=== PATIENT | female | born 1955 | race Caucasian/White ===

== ENCOUNTER 2021-01-16 07:41 | Outpatient (CLI) | payer OTHER, SELFPAY ==
--- NOTE | ~2021-01-16 | MM_ITS ---
EXAMINATION: MM screening [facility] BI w margie HISTORY: Screening mammogram TECHNIQUE: Craniocaudal and mediolateral oblique 3-D tomosynthesis images were obtained and synthetic 2-D images were generated. CAD analysis was submitted and interpreted. COMPARISON: 12/21/2019, 10/06/2018, 09/09/2017 BREAST PARENCHYMAL COMPOSITION: There are scattered areas of fibroglandular density. FINDINGS: There is no evidence of suspicious mass, calcification, or architectural distortion to sugg est malignancy in either breast. There has been no suspicious interval change. IMPRESSION: 1. No mammographic evidence of malignancy. 2. Recommend routine screening mammography in one year. BI-RADS Category 1: Negative Reviewed, dictated and finalized at location A. EDGE ROUNDER
== END 2021-01-16 07:42 | disposition home or self-care (01) ==
LOC: ANHIMG 07:43
PROVIDERS: PCP Internal Medicine; Visit Provider Obstetrics & Gynecology Gynecology
DX: Z12.31 Encounter for screening mammogram for malignant neoplasm of breast (principal)
CPT/HCPCS: 77063; 77067

== ENCOUNTER → 2022-04-23 11:08 | Outpatient (CLI) | payer MEDICARE, SELFPAY ==
--- NOTE | ~2022-04-23 | MR_ITS ---
EXAMINATION: MR lumbar spine wo con DATE: 04/23/2022 11:45 INDICATION: Chronic low back pain. TECHNIQUE: Magnetic resonance imaging (MRI) of the lumbar spine was performed without intravenous con trast. Sequences included sagittal T2-weighted FSE, sagittal T2-weighted FS FSE, sagittal T1-weighted FSE, and axial T2-weighted FSE. COMPARISON: Lumbar spine radiographs 05/29/2019, chest 2 views 09/12/2018 FINDINGS: There is 4 degrees dextrocurvature of thoracolumbar spine. There is 5 mm retrolisthesis of T12 on L1, 7 mm retrolisthesis of L1 on L2, 3 mm retrolisthesis of L2 on L3, 5 mm anterolisthesis of L4 on L5, and 10 mm anterolisthesis of L5 on S1. There are chronic bilateral L5 pars defects. There i s severely decreased disc height at T11-T12, T12-L1, L1-L2, and L5-S1 with endplate remodeling includ ing chronic 1/5 height loss of L5 vertebral body posteriorly. There is ligamentum flavum hypertrophy from L2-L3 through L4-L5. The distal spinal cord signal intensity is no L4-L5. There is Baastrup dis ease from L2-L3 through L4-L5. The following disc levels are specifically discussed: T12-L1: The disc is bulging and has an annular fissure. There is mild bilateral facet joint osteoarth ritis. There is mild right and moderate left neural foraminal stenosis. There is mild central canal s tenosis. L1-L2: The disc is bulging and has an annular fissure. There is mild bilateral facet joint osteoarthr itis. There is moderate bilateral neural foraminal stenosis. There is mild central canal stenosis. L2-L3: The disc is bulging and has an annular fissure. There is moderate right and mild left facet briseida int osteoarthritis. There is moderate bilateral neural foraminal stenosis. There is mild central kelsi l stenosis. L3-L4: The disc is bulging. There is severe right and moderate left facet joint osteoarthritis. There is moderate bilateral neural foraminal stenosis. There is mild central canal stenosis. L4-L5: The disc is bulging. There is severe bilateral facet joint osteoarthritis. There is moderate r ight and mild left neural foraminal stenosis. There is mild central canal stenosis. L5-S1: The disc is bulging and has an annular fissure. There is severe bilateral facet joint osteoart hritis. There is moderate bilateral neural foraminal stenosis. There is mild central canal stenosis. IMPRESSION: 1. Severe lumbar spondylosis. 2. Chronic bilateral L5 pars defects with grade 2 anterolisthesis of L5 on S1. Reviewed, dictated and finalized at location A.
== END ==
PROVIDERS: PCP Internal Medicine; Visit Provider Pain Medicine Pain Medicine
DX: M54.16 Radiculopathy, lumbar region (principal); M43.06 Spondylolysis, lumbar region
CPT/HCPCS: 72148

== ENCOUNTER 2022-06-18 08:44 | Outpatient (CLI) | payer MEDICARE, SELFPAY ==
--- NOTE | ~2022-06-18 | MM_ITS ---
EXAMINATION: MM screening [facility] BI w margie HISTORY: Screening mammogram TECHNIQUE: Craniocaudal and mediolateral oblique 3-D tomosynthesis images were obtained and synthetic 2-D images were generated. CAD analysis was submitted and interpreted. COMPARISON: January 16, 2021, December 21, 2019, October 06, 2008 bilateral screening mammogram exam inations Medial shoulder BREAST PARENCHYMAL COMPOSITION: There are scattered areas of fibroglandular density. FINDINGS: There is no evidence of suspicious mass, calcification, or architectural distortion to sugg est malignancy in either breast. There has been no suspicious interval change. IMPRESSION: 1. No mammographic evidence of malignancy. 2. Recommend routine screening mammography in one year. BI-RADS Category 1: Negative Reviewed, dictated and finalized at location A.
--- NOTE | ~2022-06-18 | DEXA_ITS ---
Bone Density Report Name: DIMITRIOS MO Age: 66 Sex: Female Ethnicity: White Date of : 1955 Indication: postmenopausal; screening for osteoporosis; height loss; prior fracture; asthma or emphysema; Referring Provider: MIRIAM FALLON Study: Bone densitometry was performed. Exam Date: June 18, 2022 Accession number: [id number] Bone Density: Region BMD T-score Z-score Classification AP Spine(L1, L2, L3) 0.981 -0.3 1.4 Normal Femoral Neck (Left) 0.822 -0.2 1.3 Normal Total Hip (Left) 0.739 -1.7 -0.4 Osteopenia Femoral Neck (Right) 1.000 1.4 2.9 Normal Total Hip (Right) 0.761 -1.5 -0.2 Osteopenia Total Hip Mean 0.750 -1.6 -0.3 Osteopenia World Health Organization criteria for BMD impression classify patients as: Normal (T-score at or above -1.0), Osteopenia (T-score between -1.0 and -2.5), or Osteoporosis (T-score at or below -2.5). 10-year Fracture Risk: FRAX not reported because: Prior hip or vertebral fracture Previous Exams: Region Exam Age BMD T-score BMD Change BMD Change Date g/cm2 vs Baseline vs Previous AP Spine (L1-L3) 06/18/2022 66 0.981 -0.3 0.010 (1.0%)# 0.056 (6.0%)* 10/06/2018 63 0.926 -0.8 -0.045 (-4.7%) -0.040 (-4.2%) 06/23/2016 60 0.966 -0.5 -0.005 (-0.6%) -0.005 (-0.6%) 03/05/2014 58 0.971 -0.4 Total Hip(Left) 06/18/2022 66 0.739 -1.7 -0.047 (-5.9%) -0.088 (-10.6% 10/06/2018 63 0.827 -0.9 0.041 (5.2%)# 0.060 (7.8%)* 06/23/2016 60 0.768 -1.4 -0.018 (-2.3%) -0.018 (-2.3%) 03/05/2014 58 0.786 -1.3 Total Hip(Right) 06/18/2022 66 0.761 -1.5 -0.011 (-1.4%) -0.063 (-7.6%) 10/06/2018 63 0.824 -1.0 0.052 (6.7%)# 0.048 (6.2%)* 06/23/2016 60 0.776 -1.4 0.004 (0.5%)# 0.004 (0.5%)# 03/05/2014 58 0.772 -1.4 *Denotes significance at 95% confidence level, LSC for AP Spine = 0.022 g/cm2, LSC for Total Hip = 0.027 g/cm2 # Denotes dissimilar scan types or analysis methods Clinical Information Provided by Patient: Have had a previous hip or vertebral fracture Has had a low trauma fracture Has used the following medications: Vitamin D Has the following medical conditions: Asthma or Emphysema Patient maximum height was 70.5 Menopause Age: 51 Drinks caffeinated beverages Onset of menses at age 16 Number of children 3 Impression: The patient has low bone mass, based on the Left Total Hip T-score. The patient has risk factors, including: previous fracture
== END 2022-06-18 08:45 | disposition home or self-care (01) ==
LOC: ANHIMG 08:46
PROVIDERS: PCP Internal Medicine; Visit Provider Obstetrics & Gynecology Gynecology
DX: Z12.31 Encounter for screening mammogram for malignant neoplasm of breast (principal); Z78.0 Asymptomatic menopausal state; M85.852 Other specified disorders of bone density and structure, left thigh; M85.851 Other specified disorders of bone density and structure, right thigh
CPT/HCPCS: 77063; 77067; 77080

== ENCOUNTER 2023-11-14 10:25 | Outpatient (CLI) | payer MEDICARE, SELFPAY ==
--- NOTE | ~2023-11-14 | MM_ITS ---
EXAMINATION: MM screening [facility] BI w margie HISTORY: Screening mammogram TECHNIQUE: Craniocaudal and mediolateral oblique 3-D tomosynthesis images were obtained and synthetic 2-D images were generated. CAD analysis was submitted and interpreted. COMPARISON: 06/18/2022, 01/16/2021, 12/21/2019 bilateral screening mammogram examinations BREAST PARENCHYMAL COMPOSITION: There are scattered areas of fibroglandular density. FINDINGS: There is no evidence of suspicious mass, calcification, or architectural distortion to sugg est malignancy in either breast. There has been no suspicious interval change. IMPRESSION: 1. No mammographic evidence of malignancy. 2. Recommend routine screening mammography in one year. BI-RADS Category 1: Negative Reviewed, dictated and finalized at location A. MACHINE OPERATOR
== END 2023-11-14 10:26 | disposition home or self-care (01) ==
PROVIDERS: PCP Internal Medicine; Visit Provider Obstetrics & Gynecology Gynecology
DX: Z12.31 Encounter for screening mammogram for malignant neoplasm of breast (principal)
CPT/HCPCS: 77063; 77067

== ENCOUNTER 2024-12-18 15:02 | Outpatient (CLI) | payer MEDICARE, SELFPAY ==
--- NOTE | ~2024-12-18 | MM_ITS ---
EXAMINATION: MM screening [facility] BI w margie HISTORY: Screening TECHNIQUE: Craniocaudal and mediolateral oblique 3-D tomosynthesis images were obtained and synthetic 2-D images were generated. CAD analysis was submitted and interpreted. COMPARISON: Comparison to multiple prior studies sequentially, with oldest reviewed study dated 08/27. BREAST PARENCHYMAL COMPOSITION: Not dense: There are scattered areas of fibroglandular density. FINDINGS: There is no evidence of suspicious mass, calcification, or architectural distortion to sugg est malignancy in either breast. There has been no suspicious interval change. IMPRESSION: 1. No mammographic evidence of malignancy. 2. Recommend routine screening mammography in one year. BI-RADS Category 1: Negative Reviewed, dictated and finalized at location A. NDER OPERATOR HELPER
== END 2024-12-18 15:03 | disposition home or self-care (01) ==
LOC: ANHIMG 15:04
PROVIDERS: PCP Internal Medicine; Visit Provider Obstetrics & Gynecology Gynecology
DX: Z12.31 Encounter for screening mammogram for malignant neoplasm of breast (principal)
CPT/HCPCS: 77063; 77067

== ENCOUNTER 2025-11-19 20:57 | Emergency (ER) | payer MEDICARE, SELFPAY ==
--- OUTSIDE RECORDS SUMMARY | 2025-11-19 21:00 | XMS_ITS | Clinical Summary ---
Author Organization [facility] Address [address] [place] [address] Care Team Providers Care Bellman Name Role Phone Chris Wright MD Primary Care Provider [phone] Source Comments [facility],non-owned Affiliates and Associated Physician Practices is amultiple site organization consisting of ambulatory clinics and hospital sitesin [place], [place], [place] and [place]. This disclosure is being madepursuant to the Care Everywhere program and may not contain all information available regarding this patient. Last updated 18.[facility] Allergies No known active allergies Medications * Be aware that medications may not be up to date on this document. Alwaysverify current medications with the patient. vitamin D, ergocalciferol, (DRISDOL) 57908 UNITS capsule Take 1 (one) capsule by mouth every 7 days 3 09/10/2016 Active ADVAIR DISKUS 500-50 MCG/DOSE inhaler Inhale 1 (one) puff by mouth 2 times daily 02/26/2019 Active Ascorbic Acid 500 MG Take 500 mg by mouth once daily Active B Complex Vitamins (B COMPLEX PO) Take 1 tablet by mouth once daily Active budesonide (Rhinocort Aqua) 32 MCG/ACT nasal spray Ryder 2 (two) sprays into each nostril once daily 8.43 mL 5 07/25/2022 Active ibandronate (Boniva) 150 MG tablet Take 1 (one) tablet by mouth every 30 days 10/23/2023 Active montelukast (Singulair) 10 MG tablet Take 1 (one) tablet by mouth once daily 11/24/2023 Active albuterol HFA (Proventil; Ventolin; Proair) 108 (90 Base) MCG/ACT inhaler Inhale 2 (two) puffs by mouth every 6 hours as needed 01/14/2025 Active benzonatate (Tessalon) 200 MG capsule Take 1 (one) capsule by mouth 3 times daily 01/14/2025 Active Active Problems Problem Noted Date Diagnosed Date Degenerative cervical spinal stenosis 03/31/2022 Degenerative spondylolisthesis 03/31/2022 Spondylolysis of lumbosacral region 03/31/2022 Mild intermittent asthma without complication Primary osteoarthritis of both knees 10/23/2018 Pulsatile abdominal mass 10/23/2018 Vitamin D deficiency 10/23/2018 Obstructive sleep apnea 07/11/2017 Nasal polyp 05/11/2016 Chronic ethmoidal sinusitis 09/30/2015 Chronic maxillary sinusitis 09/30/2015 Resolved Problems Problem Noted Date Diagnosed Date Resolved Date Bilateral sacral insufficien cy fracture with routine healing 06/26/2019 12/25/2024 Immunizations Immunization Administration Dates Next Due INFLUENZA VACCINE, TRIV. (AF LURIA, FLUZONE TRIVALENT; 6MO+) (IIV3) 07/28/2020,09/04/2019,09/22/2018 COVID MODERNA 12+ yr 50mcg/0.5mL 08/12/2024,1105/2023 COVID MODERNA BIVALENT 12Y+ 50MCG/0.5ML 04/29/20 COVID PFIZER BIVALENT 12Y+ 30mcg/0.3ML Covid Pfizer primary Monoval ent 12+ yr 0.3ml 03/21/2022 Covid Pfizer primary monoval ent 12+ yr 0.3mL Purple cap 09/08/2021,02/16/2021,01/26/2021 INFLUENZA [id number], HISTORIC VACCINE 09/11/2023 INFLUENZA VACCINE 08/23/2023 INFLUENZA VACCINE, CELL CULT URE, QUADR. (FLUCELVAX QUADRIVALENT; 6MO+) (CCIIV4) 09/04/2019,09/21/2018 INFLUENZA VACCINE, HIGH-DOSE , QUADR. (FLUZONE HIGH-DOSE QUADRIVALENT; 65Y+), 0.7 ML (HD-IIV4) 10/03/2023,08/17/2022,09/08/2021 INFLUENZA VACCINE, HIGH-DOSE , TRIV. (FLUZONE HIGH-DOSE TRIVALENT; 65Y+) (HD-IIV3) 08/12/2024 PNEUMOCOCCAL PPSV23 04/01/2021 Pneumococcal Pcv13 Conj 05/11/2020 RSV AREXVY 60YR+ 0.5ML 11/29/2023 ZOSTER VACCINE, LIVE 11/27/2016,09/18/2016 Zoster Hzv Vacc Recombinant Inj Im 04/29/2023, Family History Medical History Relation Name Comments Arthritis - Rheumatoid Brother 1 Osteoporosis Brother 2 Arthritis - Rheumatoid Father Hearing Loss Father Heart Disease Father High Cholesterol Father Hypertension Father Arthritis - Rheumatoid Maternal Grandmother Anemia Mother Arthritis - Rheumatoid Mother Dementia Mother Hearing Loss Mother Heart Disease Mother Hypertension Mother Osteoporosis Mother Arthritis - Rheumatoid Paternal Grandmother Arthritis - Rheumatoid Sister 1 Osteoporosis Sister 2 Thyroid Disease Sister 3 Relation Name Status Comments Brother 1 Brother 2 Father Maternal Grandmother Mother Paternal Grandmother Sister 1 Sister 2 Sister 3 Social History Tobacco Use Types Packs/Day Years Used Date Smoking Tobacco: Never Smokeless Tobacco: Never Tobacco Cessation:Counseling Given: Not Answered Alcohol Use Standard Drinks/Week Comments Yes 3 (1 standard drink = 0.6 oz pur e alcohol) Comments Unknown Sex and Gender Information Value Date Recorded Sex Assigned at Not on file Legal Sex Female 5:23 PM SECTION HAND HELPER Gender Identity Not on file Sexual Orientation Not on file Last Filed Vital Signs Vital Sign Reading Time Taken Comments Blood Pressure 145/80 01/28/2025 9:24 AM SECTION HAND HELPER Pulse 79 01/28/2025 9:24 AM SECTION HAND HELPER Temperature 36.7 C (98.1 F) 06/08/2021 2:51 PM CDT Respiratory Rate 14 08/23/2016 9:30 AM CDT Oxygen Saturation - - Inhaled Oxygen Concentration - - Weight 66.9 kg (147 lb 8 oz) 01/28/2025 9:24 AM SECTION HAND HELPER Height 175.3 cm (5' 9) 01/28/2025 9:24 AM SECTION HAND HELPER Body Mass Index 21.78 01/28/2025 9:24 AM SECTION HAND HELPER Plan of Treatment Health Maintenance Due Date Last Done Comments COLOGUACHERYL (AGES 45-75) - COLON CA SCREENING 1955 COLON MONITORING 1955 COLONOSCOPY - COLON CA SCREENING 1955 CT COLONOGRAPHY - COLON CA SCREENING 1955 Colorectal Cancer Screening 1955 FIT - COLON CA SCREENING 1955 FLEX SIG - COLON CA SCREENING 1955 LIPID TESTING 1955 HEPATITIS C SCREENING 08/22/1974 DTAP/TDAP/TD VACCINES (1 - Tdap) 1975 DEPRESSION SCREENING 11/27/2024 MEDICARE AWV CALENDAR YEAR 2024 COVID-19 VACCINE (2024- season) 2025 08/12/2024, 10/03/2023, 04/29/2023, Additional history exists INFLUENZA VACCINE (#1) 2025 , 10/03/2023, 09/11/2023, Additional history exists MAMMOGRAM 11/14/2025 11/14/2023 PNEUMOCOCCAL VACCINE 50+ (3 of 3 - PCV20 or PCV21) 04/01/2026 04/01/2021, 05/11/2020 BONE DENSITY TESTING Completed 11/18/2019, 07/01/20 19 ZOSTER VACCINE Completed 04/29/2023, 1211/2021, 11/27/2016, Additional history exists Respiratory Syncytial Virus (RSV) Vaccine Pt: or over 60 yrs Completed 11/29/2023 HEPATITIS B VACCINE Aged Out No longe r eligible based on patient's age to complete this topic HIB VACCINE Aged Out No longer eligi ble based on patient's age to complete this topic HPV VACCINE Aged Out No longer eligi ble based on patient's age to complete this topic MENINGOCOCCAL (Group B) VACCINE SHARED DECISION-MAKING Aged Out No longer eligible based on patient's age to complete this topic MENINGOCOCCAL GROUPS A/C/Y/W VACCINE Aged Out No longer eligible based on patient's age to complete this topic Insurance [facility] MEDICARE UHC MANAGED MEDICARE ADV [facility] Care Teams Bellman Relationship Specialty Start Date End Date Chris Wright MD PCP - General 04/09/19
--- OUTSIDE RECORDS SUMMARY | 2025-11-19 21:00 | XMS_ITS | Clinical Summary ---
Author Organization [facility] Address [address] [place] [address] Care Team Providers Care Occupational Therapy Teacher Name Role Phone Chris Wright MD Primary Care Provider [phone] Allergies No known active allergies Medications ascorbic acid (VITAMIN C) 500 mg Tablet, Chewable Take 500 mg by mouth daily. Active B-complex + vitamin C (SUPER B-C) Tablet Take 1 Tablet by mouth daily. Active ibandronate (BONIVA) 150 mg tablet Take 1 Tablet (150 mg) by mouth every 30 days. 3 Tablet 3 10/23/20 23 Active Cholecalciferol, Vitamin D3, (Vitamin D3) 10 mcg (400 unit) capsule Take 400 Units by mouth daily. 11/27/19 24 Active benzonatate (TESSALON) 200 mg capsuleIndicatio ns:Mild intermittent asthma with acute exacerbation Take 1 Capsule (200 mg) by mouth 3 times daily. 30 Capsule 01/14/20 25 Active albuterol sulfate HFA 90 mcg/actuation aerosol inhalerIndicatio ns:Mild intermittent asthma with acute exacerbation Take 2 Puffs by inhalation every 6 hours as needed for Shortness of Breath or Wheezing. 8.5 Gram 01/14/20 25 Active fluticasone propion-salmeter oL (ADVAIR DISKUS,WIXELA INHUB) 500-50 mcg/dose disk inhaler Take 1 Puff by inhalation 2 times daily. 60 Each 3 07/08/20 25 Active montelukast (SINGULAIR) 10 mg tabletIndication s:Mild intermittent asthma without complication TAKE 1 TABLET BY MOUTH DAILY 90 Tablet 3 10/09/20 Active methylPREDNISolo ne (MEDROL DOSPACK) 4 mg Tablets, Dose Pack As directed 21 Tablet 03/10/20 25 025 Discontinued Active Problems Patient Care Coordination No te Formatting of this note migh t be different from the original. [id number] 02/24/25 Problem Noted Date Diagnosed Date Other asthma 08/16/2024 Spondylolysis of lumbosacral region 03/31/2022 Degenerative spondylolisthesis 03/31/2022 Lumbar stenosis without neurogenic claudication 03/31/2022 Degenerative cervical spinal stenosis 03/31/2022 Bilateral sacral insufficien cy fracture with routine healing 06/26/2019 Mild intermittent asthma without complication Vitamin D deficiency 10/23/2018 Primary osteoarthritis of both knees 10/23/2018 Pulsatile abdominal mass 10/23/2018 Encounters Date Type Department Care Team Description 11/18/2025 External Device Data [facility]CTION Provider, Abstract 11/17/2025 10:20 AM [employer] Office Visit [facility] [address] [place] [address] Chris Wright MD Screening mammogram, encounter for (Primary Dx); Vitamin B12 deficiency (non anemic); Vitamin D deficiency; Other asthma; Elevated BP without diagnosis of hypertension; Myalgia 10/14/2025 External Device Data [facility] Provider, Abstract 10/08/[address] [place] [address] Chris Wright MD Mild intermittent asthma without complication 09/17/2025 External Device Data [facility]STRACTION Provider, Abstract from Last 3 Months Immunizations Immunization Administration Dates Next Due (ADACEL/BOOSTRIX)(10 YR UP) TDAP VACCINE, 0.5ML, IM 11/29/2023 (AREXVY)(60 YR UP) RSV, JUAN MBINANT, PROTEIN SUBUNIT RSVPREF, ADJUVANT RECONSTITUTED, 0.5 ML, PF 11/29/2023 (PFIZER)(12 YR UP) COVID-19 VACCINE - EMERGENCY USE AUTHORIZATION, MRNA, [id number](PF) 30 MCG/0.3 ML IM SUSP 03/21/2022,09/06/2021,02/16/2021,01/26 (PNEUMOVAX 23)(50 YRS UP) PN EUMOCOCCAL POLYSACCHARIDE (PPV23) 0.5 ML, IM 04/01/2021 (Pfizer Bivalent)(12 Yr Up) COVID-19 Vaccine - Emergency Use Authorization, MRNA, Lnp-S(Pf) 30 Mcg/0.3 Ml Susp 08/12/2024 (SPIKEVAX)(12YR UP) COVID-19 VACCINE, MRNA (PF)50 MCG/0.5 ML, IM SYRINGE 08/27/2025 INFLUENZA VACCINE HIGH DOSE QUADRIVALENT 65 YR UP PF IM 08/27/2025,09/11/2023,08/17/2022 INFLUENZA VACCINE HIGH DOSE TRIVALENT SPLIT VIRUS, (65 YR UP), 0.5ML (PF), IM 08/12/2024 Influenza Seasonal Unspecifi ed Formulation IM 07/28/2020,09/04/2019,08/27/2019,09/22 Influenza Vaccine Tri Split 4+ Im 09/22/2018 Influenza, Unspecified Formulation 08/23/2023 Pneumococcal 13-vivi Conj Vac c Patient Supplied 05/11/2020 Zoster Vaccine Live SQ 11/27/2016,09/18/2016 Family History Medical History Relation Name Comments Arthritis-rheumatoid Brother 1 Joseph Other Brother 1 Joseph Rheumatoid Arth ritis No Known Problems Brother 2 Heart Disease Father Sivakumar Heart Failure Father Sivakumar High Cholesterol Father Sivakumar Hypertension Father Sivakumar Other Father Sivakumar Smoker Ulcers Father Sivakumar No Known Problems Maternal Grandfather No Known Problems Maternal Grandmother Aneurysm Mother Tatianna Brain Aneurysm Arthritis-osteo Mother Tatianna Brain Aneurysm Mother Tatianna Heart Disease Mother Tatianna Other Mother Tatianna Arthritis; brai n aneurism Diabetes Other Uncle No Known Problems Paternal Grandfather No Known Problems Paternal Grandmother Arthritis-osteo Sister Mary Other Sister Mary Arthritis; hear t; IBS Thyroid Disease Sister Mary Breast Cancer Neg Hx Colon Cancer Neg Hx Ovarian Cancer Neg Hx Relation Name Status Comments Brother 1 Joseph Alive Brother 2 Alive Father Sivakumar Maternal Grandfather Maternal Grandmother Mother Tatianna Other Uncle Alive Paternal Grandfather Paternal Grandmother Sister Mary Alive Social History Tobacco Use Types Packs/Day Years Used Date Smoking Tobacco: Never Passive Smoke Exposure: Never Smokeless Tobacco: Never Tobacco Cessation:Counseling Given: No Alcohol Use Standard Drinks/Week Comments Yes 4 (1 standard drink = 0.6 oz pur e alcohol) Occasionally Financial Resource Strain Answer Date R ecorded How hard is it for you to pa y for the very basics like food, housing, medical care, and heating? Not hard at all 02/08/2022 Food Insecurity Answer Date Recorded In the past 12 months, have you worried that your food would run out before you had money to buy more? Never true 02/08/2022 In the past 12 months, did y ou run out of food and didn't have money to buy more? Never true 02/08/2022 Transportation Needs Answer Date Record ed In the past 12 months, has l ack of transportation kept you from medical appointments or from getting medications? No 02/08/2022 Lack of Transportation (Non-Medical) Not on file 02/08/2022 Comments No Sex and Gender Information Value Date Recorded Sex Assigned at Not on file Legal Sex Female 4:47 PM CDT Gender Identity Not on file Sexual Orientation Not on file Last Filed Vital Signs Vital Sign Reading Time Taken Comments Blood Pressure 124/66 11/17/2025 9:53 AM [employer] Pulse 65 11/17/2025 9:53 AM [employer] Temperature 36.4 C (97.6 F) 01/14/2025 10:42 AM [employer] Respiratory Rate 12 01/14/2025 10:42 AM [employer] Oxygen Saturation 98% 11/17/2025 9:53 AM [employer] Inhaled Oxygen Concentration - - Weight 68.5 kg (151 lb) 11/17/2025 9:53 AM [employer] Height 170.2 cm (5' 7) 11/17/2025 9:53 AM [employer] Body Mass Index 23.65 11/17/2025 9:53 AM [employer] Plan of Treatment Upcoming Encounters Date Type Department Care Team (Late st Contact Info) Description 08/05/2026 10:20 AM CDT Office Visit [facility] [address] [place] [address] Chris Wright MD [address] [place] [address] [address] [place] [address] Health Maintenance Due Date Last Done Comments FIT/ DNA Q 3 YEARS (AUTO ORDER) 1974 FIT/FOBT Q 1 YEAR (AUTO ORDER) 1974 FLEX SIG/CT COLONOGRAPHY Q 5 YEARS (AUTO ORDER) 1974 COLORECTAL CANCER SCREENING (AUTO ORDER) 2001 Colorectal Cancer Screening (AUTO ORDER) 2001 FIT-DNA Q 3 years 2001 FIT/FOBT Q 1 year 2001 Flex Sig/CT Colonography Q 5 years 2001 ZOSTER VACCINE (2 of 3) 01/22/2017 11/27/2016, 09/18 BREAST CANCER SCREENING 11/14/2024 11/14/20, 11/14/2023, 06/18/2022, Additional history exists COVID-19 Vaccine ( season) 2026 08/27/2025, 08/12/2024, 10/03/2023, Additional history exists PNEUMOCOCCAL VACCINE 50+ YEA RS (3 of 3 - PCV20 or PCV21) 04/01/2026 04/01/2021, 05/11/2020 COLORECTAL SCREENING 06/14/2027 06/14/2017 (Previously completed) Colorectal Cancer Screening 06/14/2027 OSTEOPOROSIS SCREENING 06/18/2027 , 06/18/2022, 11/18/2019, Additional history exists DTAP/TDAP/TD VACCINES (2 - T d or Tdap) 11/29/2033 11/29/2023 RSV VACCINE (60+ or ) Completed 11/29/2023 Medicare Advantage ([place]) Preventative Visit/Annual Wellness Visit Completed 02/24/2025, 04/14/2023, 02/09/2022, Additional history exists INFLUENZA VACCINE Completed 08/27/2025, , 09/11/2023, Additional history exists Procedures Procedure Name Priority Date/Time Associated Diagnosis Comments VITAMIN D 25 HYDROXY Routine 11/12/2025 7:53 AM [employer] Vitamin D deficiency VITAMIN B12 LEVEL Routine 11/12/2025 7:5 3 AM [employer] Vitamin B12 deficiency (non anemic) TSH Routine 11/12/2025 7:53 AM [employer] Screening, lipid LIPID PANEL Routine 11/12/2025 7:53 AM [employer] Screening, lipid COMPREHENSIVE METABOLIC PANEL Routine 11/12/2025 7:53 AM [employer] Elevated BP without diagnosis of hypertension CBC WITH DIFFERENTIAL Routine 11/12/2025 7:53 AM [employer] Vitamin B12 deficiency (non anemic) MAMMO 3D BUBBA SCREEN BILAT W OR WO CAD Routine 11/14/2023 10:55 AM [employer] XR DEXA BONE DENSITY AXIAL 1 OR MORE SITES Routine 06/18/2022 from Last 3 Months or Most Recently Relevant to Health Maintenance Results * (ABNORMAL) CBC WITH DIFFERENTIAL (11/12/2025 7:53 AM [employer]) WBC 3.7(L) 3.8 - 10.8 Thousand/ uL [facility] RBC 4.37 3.80 - 5.10 Million/u L [facility] HEMOGLOBIN 13.8 11.7 - 15.5 g/dL [facility] HEMATOCRIT 42.0 35.9 - 46.0 % [facility] MCV 96.1 81.4 - 101.7 fL [facility] MCH 31.6 27.0 - 33.0 pg [facility] MCHC 32.9 31.6 - 35.4 g/dL [facility] RDW 13.3 11.0 - 15.0 % [facility] PLATELETS 232 140 - 400 Thousand/ uL [facility] MPV 11.1 7.5 - 12.5 fL [facility] NEUTROPHIL ABSOLUTE 1,894 1,500 - 7,800 cells/uL [facility] LYMPHOCYTE ABSOLUTE 1,388 850 - 3,900 cells/uL [facility] MONOCYTE ABSOLUTE 259 200 - 950 cells/uL [facility] EOSINOPHIL ABSOLUTE 141 15 - 500 cells/uL [facility] BASOPHILS ABSOLUTE 19 0 - 200 cells/uL [facility] NEUTROPHIL 51.2 % [facility] LYMPHOCYTES 37.5 % [facility] MONOCYTE 7.0 % [facility] EOSINOPHILS 3.8 % [facility] BASOPHILS 0.5 % [facility] Comment: FASTING:YES FASTING: YES Test Performed at: [facility] [address] [place] [address] Zahra Blount Blood 11/12/2025 7:53 AM [employer] [employer] 11/12/2025 7:54 AM [employer] Chris Wright MD HEMATOLOGY ORDERABLES Final R esult [facility] [phone] [facility] [address] [place] [address] * VITAMIN D 25 HYDROXY (11/12/2025 7:53 AM [employer]) VITAMIN D, 25 OH, TOTAL 61 30 - 100 ng/mL [facility] Comment: Vitamin D Status 25-OH Vitamin D: Deficiency: <20 ng/mL Insufficiency: 20 - 29 ng/mL Optimal: > or = 30 ng/mL For 25-OH Vitamin D testing on patients on D2-supplementation and patients for whom quantitation of D2 and D3 fractions is required, the [facility]) 25-OH VIT D, (D2,D3), LC/MS/MS is recommended: order code 64087 (patients >2yrs). See Note 1 Note 1 For additional information, please refer to http://education.Mozido.NetConstat/faq/VUH815 (This link is being provided for informational/ educational purposes only.) FASTING:YES FASTING: YES Test Performed at: [facility] [address] [address] Zahra Blount MD Blood 11/12/2025 7:53 AM [employer] 11/12/2025 7:54 AM [employer] Chris Wright MD CHEMISTRY ORDERABLES Final Re sult [facility] [phone] [facility] [address] [place] [address] * TSH (11/12/2025 7:53 AM [employer]) [facility] TSH 2.33 0.40 - 4.50 mIU/L [facility] [employer] Comment: FASTING:YES FASTING: YES Test Performed at: [place] [address] [place] [address] Zahra Blount Blood 11/12/2025 7:53 AM [employer] 11/12/2025 7:54 AM [employer] Chris Wright MD CHEMISTRY ORDERABLES Final Re sult Performing Organization Address City/[facility]/ZIP Code Phone Number [facility] [phone] [address] [place] [address] [place] [address] * VITAMIN B12 LEVEL (11/12/2025 7:53 AM [employer]) [facility] VITAMIN B12 615 200 - 1100 pg/mL [facility] [employer] Comment: Test Performed at: [facility] [address] Zahra Blount MD Blood 11/12/2025 7:53 AM [employer] 11/12/2025 7:54 AM [employer] Chris Wright MD CHEMISTRY ORDERABLES Final Re sult [facility] [phone] [facility] [address] [place] [address] * LIPID PANEL (11/12/2025 7:53 AM [employer]) [facility] CHOLESTEROL 174 <200 mg/dL [facility] HDL 79 > OR = 50 mg/dL [facility] TRIGLYCERIDE 76 <150 mg/dL [facility] LDL CALCULATED 79 mg/dL (calc) [facility] [employer] Comment: Reference range: <100 Desirable range <100 mg/dL for primary prevention; <70 mg/dL for patients with CHD or diabetic patients with > or = 2 CHD risk factors. LDL-C is now calculated using the Marco calculation, which is a validated novel method providing better accuracy than the Friedewald equation in the estimation of LDL-C. Kofi GROSSMAN et al. ANDIE. 2013;310(19): 2008-2792 (http://education.Pingup/faq/GJN220) CHOL/HDL RATIO 2.2 <5.0 (calc) [facility] NON-HDL CHOLESTEROL 95 <130 mg/dL (calc) [facility] Comment: For patients with diabetes plus 1 major ASCVD risk factor, treating to a non-HDL-C goal of <100 mg/dL (LDL-C of <70 mg/dL) is considered a therapeutic option. Test Performed at: [facility] [place] [address] [place] [address] Zahra Blount Blood 11/12/2025 7:53 AM [employer] 11/12/2025 7:54 AM [employer] us Chris Wright MD CHEMISTRY ORDERABLES Final Re sult [facility] [phone] [facility] [employer] [address] [place] [address] * COMPREHENSIVE METABOLIC PANEL (11/12/2025 7:53 AM [employer]) GLUCOSE 88 65 - 99 mg/dL [facility] Comment: Fasting reference interval BUN 15 7 - 25 mg/dL [facility] CREATININE 0.62 0.50 - 1.05 mg/dL [facility] GFR 96 > OR = 60 mL/min/1. 73m2 [facility] BUN/CREAT RATIO SEE NOTE: (calc) [facility] [employer]Flaquita [facility]anc[facility] Comment: Not Reported: BUN and Creatinine are within reference range. SODIUM 142 135 - 146 mmol/L [facility] POTASSIUM 4.3 3.5 - 5.3 mmol/L [facility] CHLORIDE 108 98 - 110 mmol/L [facility] CO2 30 20 - 32 mmol/L [facility] CALCIUM 9.2 8.6 - 10.4 mg/dL [facility] TOTAL PROTEIN 6.3 6.1 - 8.1 g/dL [facility] ALBUMIN 4.4 3.6 - 5.1 g/dL [facility] GLOBULIN 1.9 1.9 - 3.7 g/dL (calc) [facility] ALBUMIN/GLOBULIN RATIO 2.3 1.0 - 2.5 (calc) [facility] BILIRUBIN TOTAL 0.6 0.2 - 1.2 mg/dL [facility] ALKALINE PHOSPHATASE 72 37 - 153 U/L [facility] AST 24 10 - 35 U/L [facility] ALT 11 6 - 29 U/L [facility] Comment: FASTING:YES FASTING: YES Test Performed at: [place] [address] [place] [phone] [facility] Blood 11/12/2025 7:53 AM [employer] 11/12/2025 7:54 AM [employer] Chris Wright MD CHEMISTRY ORDERABLES Final Re [facility] [phone] [place] [address] [place] [address] * MAMMO 3D BUBBA SCREEN BILAT W OR WO CAD (11/14/2023 10:55 AM [employer]) Anatomical Region Laterality Modality Breast Bilateral Mammography us Abstract Provider MAMMO ORDERABLES Edited Result - Final * (ABNORMAL) XR DEXA BONE DENSITY AXIAL 1 OR MORE SITES (06/18/2022) T-SCORE FEMUR [facility] T-SCORE FEMUR (LEFT) [facility] T-SCORE FEMUR (RIGHT) [facility] T-SCORE FEMUR NECK [facility] T-SCORE FEMORAL NECK (LEFT) -1.7(A) -1.0 - 1.0 [facility] T-SCORE FEMORAL NECK (RIGHT) [facility] T-SCORE HEEL [facility] T-SCORE HEEL (LEFT) [facility] T-SCORE HEEL (RIGHT) [facility] T-SCORE HIP [facility] IN TERNAL [facility] T-SCORE HIP (LEFT[facility] T-SCORE HIP (RIGHT) [facility] T-SCORE WRIST [facility] T-SCORE WRIST (LEFT) [facility] T-SCORE WRIST (RIGHT) [facility] T-SCORE SPINE -0.3 -1.0 - 1.0 [facility] Anatomical Region Laterality Modality Other us Abstract Provider DIAGNOSTIC IMAGING ORDERABLES Edited Result - Final from Last 3 Months or Most Recently Relevant to Health Maintenance Insurance Care Teams Occupational Therapy Teacher Relationship Specialty Start Date End Date Chris Wright MD PCP - General Internal Medicine 10/23/18
--- OUTSIDE RECORDS SUMMARY | 2025-11-19 21:00 | XMS_ITS | Clinical Summary ---
Author Organization [facility] Address [address] [place] [address] Care Team Providers Care Customer Care Agent Name Role Phone Chris Wright MD Primary Care Provider + Morgan Mohr MD Unavailable Charlotte Vleiz Unavailable Allergies No known active allergies Medications ascorbic acid (ascorbic acid) 500 mg tablet,chewable Take 1 tablet/chew tab (500 mg total) by mouth daily Active fluticasone propion-salmeterol (ADVAIR DISKUS) 500-50 mcg/dose diskus inhaler Inhale 1 puff 2 times daily 02/19/20 19 Active cholecalciferol (VITAMIN D-3) 2000 unit capsule Take 1 capsule (2,000 Units total) by mouth daily Active montelukast (SINGULAIR) 10 mg tablet Take 1 tablet (10 mg total) by mouth nightly Active ibandronate (BONIVA) 150 mg tablet Take 1 tablet (150 mg total) by mouth every 30 (thirty) days Take in AM with glass of water prior to food, don't lie down for 30 minutes. Takes on - of each month Active vitamin B comp and C no.3 42-64-92-5-300 mg capsule Take 1 tablet by mouth daily Active fluticasone propionate (FLONASE) 50 mcg/actuation nasal spray Administer 2 sprays into each nostril daily as needed for rhinitis Active azelastine (ASTELIN) 137 mcg (0.1 %) nasal spray Administer 2 sprays into affected nostril(s) daily 04/14/20 Active aspirin 325 mg enteric coated tabletIndications: Deep Vein Thrombosis Prevention Take 1 tablet (325 mg total) by mouth daily 42 tablet 09/07/20 Active celecoxib (CeleBREX) 200 mg capsuleIndications :Pain Take 1 capsule (200 mg total) by mouth 2 (two) times a day 84 capsule 09/07/20 Active ondansetron ODT (ZOFRAN-ODT) 4 mg disintegrating tabletIndications: nausea and vomiting Take 1 tablet (4 mg total) by mouth every 6 (six) hours as needed for nausea or vomiting 20 tablet 2 09/07/20 Active oxyCODONE-acetamin ophen (PERCOCET) 5-325 mg per tabletIndications: Pain Take 1-2 tablets by mouth every 4 (four) hours as needed for pain 40 tablet 09/07/20 Active Additional Information Patient not taking.Reported on 09/26/2023 senna-docusate (PERICOLACE) 8.6-50 mgIndications:cons tipation Take 2 tablets by mouth 2 (two) times a day 60 tablet 2 09/07/20 Active Active Problems Problem Noted Date Diagnosed Date Aftercare following right hip joint replacement surgery 09/13/2023 Primary osteoarthritis of left hip 05/11/2023 Resolved Problems Problem Noted Date Diagnosed Date Resolved Date Primary osteoarthritis of right hip 08/23/2023 09/13/2023 Immunizations Immunization Administration Dates Next Due Influenza, Unspecified 08/23/2023 Surgical History Surgery Date Site/Laterality Comments JOINT REPLACEMENT Bilateral knees KNEE SURGERY Bilateral in high school TOE SURGERY Right great toe, cleaned out arthritis SINUS SURGERY ELBOW SURGERY Left Medical History Medical History Date Comments Asthma Chronic Cough Cough RLS (restless legs syndrome) Allergies Diarrhea Social History Tobacco Use Types Packs/Day Years Used Date Smoking Tobacco: Never Smokeless Tobacco: Never Tobacco Cessation:Counseling Given: Not Answered OASIS D0700: Social Isolation Answer Da te Recorded Frequency of experiencing loneliness or isolatio n Never 07/12/2023 OASIS A1250: Transportation Answer Date Recorded Lack of Transportation (Medical) No 07/12/2023 Lack of Transportation (Non-Medical) No 07/12/2023 Patient Unable or Declines to Respond No 07/12/2023 OASIS B1300: Health Literacy Answer Aldo e Recorded Frequency of needing help to read materials from doctor or pharmacy Never 07/12/2023 AUDIT-C Answer Date Recorded Q1: How often do you have a drink containing alc ohol? 2-3 times a week 09/06/2023 Q2: How many drinks containi ng alcohol do you have on a typical day when you are drinking? 1 or 2 09/06/2023 Q3: How often do you have si x or more drinks on one occasion? Never 09/06/2023 Personal Safety Answer Date Recorded Have you ever been in or are you currently in a harmful physical or emotional relationship or is someone making you feel afraid or unsafe? Denies 09/06/2023 Comments No Sex and Gender Information Value Date Recorded Sex Assigned at Not on file Legal Sex Female 2:19 AM MARINE ARCHITECT Gender Identity Not on file Sexual Orientation Not on file Last Filed Vital Signs Vital Sign Reading Time Taken Comments Blood Pressure 128/82 02/21/2024 2:05 PM CDT Pulse 90 02/21/2024 2:05 PM CDT Temperature 36.7 C (98 F) 02/21/2024 2:05 PM CDT Respiratory Rate 20 02/21/2024 2:05 PM CDT Oxygen Saturation 98% 02/21/2024 2:05 PM CDT Inhaled Oxygen Concentration - - Weight 66.2 kg (146 lb) 02/21/2024 2:05 PM CDT Height 175.3 cm (5' 9) 02/21/2024 2:05 PM CDT Body Mass Index 21.56 02/21/2024 2:05 PM CDT Plan of Treatment Health Maintenance Due Date Last Done Comments Colon Cancer Screening-Colonoscopy 1955 Depression Screening 1955 Hepatitis C Screening 1955 DTaP/Tdap/Td Vaccine (1 - Tdap) 1967 Hepatitis B Screening 1974 Zoster Vaccine (2 of 3) 01/22/2017 11/27/2016, 09/18 Well Visit 65+ 2021 Osteoporosis Screening-Bone Density Scan 06/18/2024 06/18/2022, 11/18/2019, 07/01/2019, Additional history exists Fall Risk Assessment 09/07/2024 09/07/2023 Breast Cancer Screening-Mammogram 11/14/2024 023 Influenza Vaccine (#1) 2025 , 08/17/2022, 07/28/2020, Additional history exists Pneumococcal vaccine 65+ (3 of 3 - PCV20 or PCV21) 04/01/2026 04/01/2021, 05/11/2020 Medical Devices Implanted Type Area Telehealth Nurse Device Identifier Shelf Expiration Date Model / Serial / Lot Depuy [employer] Crosby 54mm Sector Hip Shell Acetabular Gription Sterile Latex Free [id number] - [id number] Implanted:Qty: 1 on 05/26/2023 by Morgan Mohr MD at [facility] Left: Hip [employer] 02/24/2033 [id number] / / [id number] Dep[employer] Crosby 6.5mm 35mm Acetabular Cancellous Screw Bone Sterile 1217-35-500 - [id number] Implanted:Qty: 1 on 05/26/2023 by Morgan Mohr MD at [facility] Left: Hip [employer] 12/27/2032 1217-35-500 / / [id number] Dep[employer] Actis L107 Mm Collar Hip 6 High Offset Stem Femoral [id number] - [id number] Implanted:Qty: 1 on 05/26/2023 by Morgan Mohr MD at [facility] Left: Hip [employer] 12/27/2032 [id number] / / [id number] Dep[employer] Articul/Seferino 36mm Cementless Hip +5mm 12/14 Taper Head Femoral Latex Free [id number] - [id number] Implanted:Qty: 1 on 05/26/2023 by Morgan Mohr MD at [facility] Left: Hip [employer] [id number] 03/26/2028 [id number] / / [id number] Dep[employer] Crosby 54mm 36mm Hip Neutral Liner Acetabular Altrx Sterile Latex Free [id number] - Sn/A - [id number] Implanted:Qty: 1 on 05/26/2023 by Morgan Mohr MD at [facility] Left: Hip [employer] [id number] 01/25/2028 [id number] / N/A / [id number] Dep[employer] Articul/Seferino 36mm Cementless Hip +5mm 12/14 Taper Head Femoral Latex Free [id number] - [id number] Implanted:Qty: 1 on 09/06/2023 by Morgan Mohr MD at [facility] Right: Hip [employer] 07/27/2028 [id number] / / [id number] Dep[employer] Cros[place] 54mm Sector Hip Shell Acetabular Gription Sterile Latex Free [id number] - [id number] Implanted:Qty: 1 on 09/06/2023 by Morgan Mohr MD at [facility] Right: Hip [employer] 06/26/2033 [id number] / / [id number] Dep[employer] Crosby 54mm 36mm Hip Neutral Liner Acetabular Altrx Sterile Latex Free [id number] - [id number] Implanted:Qty: 1 on 09/06/2023 by Morgan Mohr MD at [facility] Right: Hip [employer] 06/26/2028 [id number] / / [id number] [employer] Crosby 6.5mm 35mm Acetabular Cancellous Screw Bone Sterile 1217-35-500 - [id number] Implanted:Qty: 1 on 09/06/2023 by Morgan Mohr MD at [facility] Right: Hip [employer] 05/26/2033 1217-35-500 / / [id number] Dep[employer] Actis Collar Hip 7 High Offset Stem Femoral [id number] - [id number] Implanted:Qty: 1 on 09/06/2023 by Morgan Mohr MD at [facility] Right: Hip [employer] 03/26/2033 [id number] / / [id number] Procedures Procedure Name Priority Date/Time Associated Diagnosis Comments DEXA AXIAL SKELETON BONE DENSITY 1 OR MORE SITES Schedule Routine, Read Routine (OP Routine) 11/18/2019 9:03 AM MARINE ARCHITECT Osteoporosis, unspecified osteoporosis type, unspecified pathological fracture presence from Last 3 Months or Most Recently Relevant to Health Maintenance Results * Dexa Axial Skeleton Bone Density 1 or 2 Site (11/18/2019 9:03 AM MARINE ARCHITECT) Anatomical Region Laterality Modality Body N/A Radiographic Pita ging Narrative 11/18/2019 12:09 PM MARINE ARCHITECT Patient Name: Deysi Antunez Date of : 1955 Date of scan: 11/18/2019 Bone mineral density was performed on a HoloDigital [employer] Discovery Densitometer. Machine Cross-calibration and Precision studies have been performed with a least significant change of 0.024 g/cm at the spine, 0.020 g/cm at the total proximal femur, and 0.014g/cm at the forearm. HISTORY: This is a 64 y.o. postmenopausal female with a history of asthma and multiple fractures. Currently on treatment with vitamin D. Previously treated with Fosamax and hormone replacement therapy. With a current complaint of back, neck and arm pain. History of tobacco use: Social History Tobacco Use Smoking Status Not on file INDICATIONS: Menopause status and history of prior pelvic fracture and stress fracture of the ankle. FINDINGS: BONE MINERAL DENSITY OF THE LUMBAR SPINE Bone Mineral Density (BMD) of the lumbar spine was measured from L1-L3 and the average density was calculated to be 0.969 gm/cm. This corresponds to a T-score standard deviations from the mean of young adults of -0.4. There is no previous study available for comparison. BONE MINERAL DENSITY OF THE PROXIMAL FEMUR Bone Mineral Density (BMD) of the left hip total was found to be 0.780 gm/cm2. This corresponds to a T-score standard deviations from the mean of young adults of -1.3. Femoral neck is 0.868 gm/cm2 with a T-score of 0.2. There is no previous study available for comparison. SUMMARY: Bone mineral density shows evidence of low bone mass in the hip and moderately increased fracture risk. ADDITIONAL COMMENTS: Please note that L-4 was excluded from the bone density analysis of the lumbar spine due to T-score being greater that 1.0 standard deviation from the adjacent vertebral body. If the patient has a history of a fragility fracture, a fracture that occurred with trauma equivalent to a fall from a standing position or less, then the diagnosis is osteoporosis. The risk of osteoporotic fracture increases approximately 2-fold for each 1.0 SD decrease in T-score. However, low bone density is not the only risk factor for fracture. Other factors include patient s age, previous osteoporotic fracture or prior fracture as an adult, loss of height of greater than 2 inches, corticosteroid use, risk of falling, risk of injury, and family history of osteoporosis. Not everyone with low bone mineral density has osteoporosis. Osteomalacia and other metabolic bone disorders should also be considered where indicated. Patients who have osteoporosis should be evaluated for specific diseases and conditions (secondary causes) that may cause or contribute to bone loss. Consider repeating this study in 1-2 years to assess the patient s response to treatment, if applicable. It is recommended that any follow up exam be performed on the same machine if possible for better accuracy. DEFINITIONS: Osteoporosis: BMD at or below -2.5 T-score Osteopenia (low bone mass): BMD between -1.0 and-2.5 T-score. The Bone Health Program adopts the following WHO definitions: Osteoporosis: BMD below -2.5 S.D. as compared to the BMD of young normal adults. Osteopenia or Low Bone Mass: BMD between -1.0 and -2.5 S.D. below the BMD of young normal adults. Normal Bone Density: BMD equal to or greater than -1.0 S.D. as compared to the BMD of young normal adults. References: 1) Chano, Annals of Internal Medicine 114(11): 919-923 (1990) 2) Corona, Lancet 341 : 72-75 (1992) 3) Black, Journal Bone and Mineral Research 7(6): 633-8 (1991) 4) Elizabeth, Journal Bone and Mineral Research 8(10):1227-33 (1992) The history and data sections of the bone mineral density scan were prepared by Zofia HERNANDEZ(R) who is accredited by the International Society of Clinical Densitometry. The overall patient assessment and scan interpretation were performed by Speedy Waite M.D. who is certified by the International Society of Clinical Densitometry. [id number] Speedy Waite MD G DXA PROCEDURES Edited R esult - Final from Last 3 Months or Most Recently Relevant to Health Maintenance Insurance ANTH ACCESS MEDICARE ADVANTAGE [facility] MEDICARE ADVANTAGE Advance Directives For more information, please contact: [phone] * Full Code (Latest Code Status on File) Date Activated Date Inactivated Comments 09/06/2023 12:52 PM 09/07/2023 5:48 PM * Full Code Date Activated Date Inactivated Comments 05/26/2023 11:03 AM 05/26/2023 6:48 PM Care Teams Customer Care Agent Relationship Specialty Start Date End Date Chris Wright MD PCP - General Internal Medicine 07/15/19 Morgan Mohr MD [address] [place] [address] [address] [place] [address] Surgeon Orthopedic Surgery 05/26/23 Charlotte Veliz PA [address] [place] [address] [place] [id number] Orthopedic Surgery 06/28/23
--- OUTSIDE RECORDS SUMMARY | 2025-11-19 21:00 | XMS_ITS | Encounter Summary ---
Author Organization [facility] Address [address] [place] [address] Care Team Providers Care Lawn Service Supervisor Name Role Phone Chris Wright MD Primary Care Provider [phone] Encounter Details Date Type Department Care Team (Late Contact Info) Description 11/18/2025 External Device Data [place] ABSTRACTION Provider, Abstract NO ADDRESS ON FILE Social History Tobacco Use Types Packs/Day Years Used Date Smoking Tobacco: Never Passive Smoke Exposure: Never Smokeless Tobacco: Never Alcohol Use Standard Drinks/Week Comments Yes 4 [...] on file Sexual Orientation Not on file documented as of this encounter Plan of Treatment Upcoming Encounters Date Type Department Care Team (Late Contact Info) Description 08/05/2026 10:20 AM CDT Office Visit [facility] Primary Care [address] [place] [address] Chris Wright MD [address] [place] [address] [address] [place] [address] documented as of this encounter Visit Diagnoses Not on filedocumented in this encounter Care Teams Lawn Service Supervisor Relationship Specialty Start Date End Date Chris Wright MD PCP - General Internal Medicine 10/23/18 documented as of this encounter
--- OUTSIDE RECORDS SUMMARY | 2025-11-19 21:00 | XMS_ITS | Encounter Summary ---
Author Organization [facility] Address [address] [place] [address] Care Team Providers Care Record Clerk Salesperson Name Role Phone Chris Wright MD Primary Care Provider [phone] Reason for Visit * Reason Onset Date Comments appointment 04/10/2023 Encounter Details Date Type Department Care Team (Late st Contact Info) Description 04/10/2023 Telephone [facility] Primary Care [address] [place] [address] Chris Wright MD [address] [facility] [address] [place] [address] appointment Social History Tobacco Use Types Packs/Day Years Used Date Smoking Tobacco: Never Smokeless Tobacco: Never Alcohol Use Standard Drinks/Week Comments Yes 6 (1 standard drink = 0.6 oz pur [...] on file documented as of this encounter Miscellaneous Notes * Telephone Encounter - Diana Brown PCT - 04/10/2023 11:55 AM CDT Provider: Chris Wright MD Next office visit: 06/01/2023 Caller: Deysi Caceres' Message: Patient stated that she is needing a sooner appointment she has to see the doctor prior to having surgery. She does have an appointment scheduled for 06.01 but stated she has to be seen a couple of weeks prior to surgery which is schedule for June 12. She would like an appointment at the end of April around 4pm. PSA tried to schedule but there where no appointments available that would meet the patient needs. Please Advise. Call-back Number: [phone] (home) documented in this encounter Plan of Treatment Upcoming Encounters Date Type Department Care Team (Late st Contact Info) Description 08/05/2026 10:20 AM CDT Office Visit [facility] Primary Care [address] [phone] Chris Wright MD [address] [place], [place] [id number] documented as of this encounter Visit Diagnoses Not on filedocumented in this encounter Care Teams Record Clerk Salesperson Relationship Specialty Start Date End Date Chris Wright MD PCP - General Internal Medicine 10/23/18 documented as of this encounter
[2025-11-19 21:16] VITALS: BP 147/80; PULSE 66; RESP 18; TEMP 36.4; O2SAT 96
--- OUTSIDE RECORDS SUMMARY | 2025-11-20 01:31 | XMS_ITS | Encounter Summary ---
Author Organization [facility] Address [address] [place] [address] Care Team Providers Care Elementary [employer] Librarian Name Role Phone Chris Wright MD Primary Care Provider [phone] Reason for Visit * Reason Onset Date Comments appointment 04/10/2023 Encounter Details Date Type Department Care Team (Late st Contact Info) Description 04/10/2023 Telephone [facility] Primary Care [address] [place] [address] Chris Wright MD [address] [facility] [address] [place] [address] appointment Social History Tobacco Use [...] the patient needs. Please Advise. Call-back Number: [phone] (home) documented in this encounter Plan of Treatment Upcoming Encounters Date Type Department Care Team (Late st Contact Info) Description 08/05/2026 10:20 AM CDT Office Visit [facility] Primary Care [address] [phone] Chris Wright MD [address] [place], [place] [id number] documented as of this encounter Visit Diagnoses Not on filedocumented in this encounter Care Teams Elementary [employer] Librarian Relationship Specialty Start Date End Date Chris Wright MD PCP - General Internal Medicine 10/23/18 documented as of this encounter
--- OUTSIDE RECORDS SUMMARY | 2025-11-20 01:31 | XMS_ITS | Clinical Summary ---
Author Organization [facility] Address [address] [place] [address] Care Team Providers Care Regional Branch Manager Name Role Phone Chris Wright MD Primary Care Provider + Morgan Mohr MD Unavailable [phone] Charlotte Veliz Unavailable Allergies No known active allergies Medications [...] Active vitamin B comp and C no.3 61-30-78-5-300 mg capsule Take 1 tablet by mouth [...] on file Legal Sex Female 2:19 AM MIXER OPERATOR TABLETS Gender Identity Not on file Sexual Orientation [...] 04/01/2021, 05/11/2020 Medical Devices Implanted Type Area Poultry Eviscerator Device Identifier Shelf Expiration Date Model / Serial / Lot Depuy [employer] [place] 54mm Sector Hip Shell Acetabular Gription Sterile Latex Free [id number] - [id number] Implanted:Qty: 1 on 05/26/2023 by Morgan Mohr MD at [facility] Left: Hip [employer] 02/24/2033 [id number] / / [id number] [employer] [place] 6.5mm 35mm Acetabular Cancellous Screw Bone Sterile 1217-35-500 - [id number] Implanted:Qty: 1 on 05/26/2023 by Morgan Mohr MD at [facility] Left: Hip [employer] 12/27/2032 1217-35-500 / / [id number] Dep[employer] Actis L107 Mm Collar Hip 6 High Offset Stem Femoral [id number] - [id number] Implanted:Qty: 1 on 05/26/2023 by Morgan Mohr MD at [facility] Left: Hip [employer] 12/27/2032 [id number] / / [id number] [employer] Articul/Seferino 36mm Cementless Hip +5mm 12/14 Taper Head Femoral Latex Free [id number] - [id number] Implanted:Qty: 1 on 05/26/2023 by Morgan Mohr MD at [facility] Left: Hip [employer] [id number] 03/26/2028 [id number] / / [id number] [employer] [place] 54mm 36mm Hip Neutral Liner Acetabular Altrx Sterile Latex Free [id number] - Sn/A - [id number] Implanted:Qty: 1 on 05/26/2023 by Morgan Mohr MD at [facility] Left: Hip [employer] [id number] 01/25/2028 [id number] / N/A / [id number] [employer] Articul/Seferino 36mm Cementless Hip +5mm 12/14 Taper Head Femoral Latex Free [id number] - [id number] Implanted:Qty: 1 on 09/06/2023 by Morgan Mohr MD at [facility] Right: Hip [employer] 07/27/2028 [id number] / / [id number] [employer] [place] 54mm Sector Hip Shell Acetabular Gription Sterile Latex Free [id number] - [id number] Implanted:Qty: 1 on 09/06/2023 by Morgan Mohr MD at [facility] Right: Hip [employer] 06/26/2033 [id number] / / [id number] [employer] [place] 54mm 36mm Hip Neutral Liner Acetabular Altrx Sterile Latex Free [id number] - [id number] Implanted:Qty: 1 on 09/06/2023 by Morgan Mohr MD at [facility] Right: Hip [employer] 06/26/2028 [id number] / / [id number] [employer] [place] 6.5mm 35mm Acetabular Cancellous Screw Bone Sterile 1217-35-500 - [id number] Implanted:Qty: 1 on 09/06/2023 by Morgan Mohr MD at [facility] Right: Hip [employer] Inc 05/26/2033 1217-35-500 / / [id number] Dep[employer] Actis Collar Hip 7 High Offset Stem Femoral [id number] - [id number] Implanted:Qty: 1 on 09/06/2023 by Morgan Mohr MD at [facility] Right: Hip [employer]uy [employer] 03/26/2033 [id number] / / [id number] Procedures Procedure Name Priority Date/Time Associated Diagnosis Comments DEXA AXIAL SKELETON BONE DENSITY 1 OR MORE SITES Schedule Routine, Read Routine (OP Routine) 11/18/2019 9:03 AM MIXER OPERATOR TABLETS Osteoporosis, unspecified osteoporosis type, unspecified pathological fracture presence from Last 3 Months or Most Recently Relevant to Health Maintenance Results * Dexa Axial Skeleton Bone Density 1 or 2 Site (11/18/2019 9:03 AM MIXER OPERATOR TABLETS) Anatomical Region Laterality Modality Body N/A Radiographic Pita ging Narrative 11/18/2019 12:09 PM MIXER OPERATOR TABLETS Patient Name: Deysi Antunez Date of : 1955 Date of scan: 11/18/2019 Bone mineral density was performed on a HoloID90T Discovery Densitometer. Machine Cross-calibration and Precision studies [...] by the International Society of Clinical Densitometry. [id number] Speedy Waite MD G DXA PROCEDURES Edited R esult - Final from Last 3 Months or Most Recently Relevant to Health Maintenance Insurance ANTH ACCESS MEDICARE ADVANTAGE [facility] MEDICARE ADVANTAGE Advance Directives For more information, please contact: [phone] * Full Code (Latest Code Status on File) Date Activated Date Inactivated Comments 09/06/2023 12:52 PM 09/07/2023 5:48 PM * Full Code Date Activated Date Inactivated Comments 05/26/2023 11:03 AM 05/26/2023 6:48 PM Care Teams Regional Branch Manager Relationship Specialty Start Date End Date Chris Wright MD PCP - General Internal Medicine 07/15/19 Morgan Mohr MD [address] [place] [address] [address] [place] [address] Surgeon Orthopedic Surgery 05/26/23 Charlotte Veliz PA [address] [place] [address] [place] [address] Orthopedic Surgery 06/28/23
--- OUTSIDE RECORDS SUMMARY | 2025-11-20 01:31 | XMS_ITS | Encounter Summary ---
Author Organization [facility] Address [address] [place] [address] Care Team Providers Care Garde Manager Name Role Phone Chris Wright MD Primary Care Provider [phone] Encounter Details Date Type Department Care Team [...] Description 08/05/2026 10:20 AM CDT Office Visit [facility] Primary Care [address] [place] [address] Chris Wright MD [address] [place] [address] [address] [place] [address] documented as of this encounter Visit Diagnoses Not on filedocumented in this encounter Care Teams Garde Manager Relationship Specialty Start Date End Date Chris Wright MD PCP - General Internal Medicine 10/23/18 documented as of this encounter
--- OUTSIDE RECORDS SUMMARY | 2025-11-20 01:31 | XMS_ITS | Clinical Summary ---
Author Organization [facility] Address [address] [place] [address] Care Team Providers Care Brick Molder Hand Name Role Phone Chris Wright MD Primary Care Provider [phone] Source Comments [facility],non-owned Affiliates and Associated Physician Practices is amultiple site organization consisting of ambulatory clinics and hospital sitesin [place], [place], [place] and [place]. This disclosure is being madepursuant to the Care Everywhere program and may not contain all information available regarding this patient. Last updated 18.[facility] Allergies No known active allergies Medications * Be aware that medications may not be up to date on this document. Alwaysverify current medications with the patient. vitamin D, ergocalciferol, (DRISDOL) 23988 UNITS capsule Take 1 (one) capsule by mouth every 7 days 3 09/10/2016 Active ADVAIR DISKUS 500-50 MCG/DOSE inhaler Inhale 1 (one) puff by mouth 2 times daily 02/26/2019 Active Ascorbic Acid 500 MG Take 500 mg by mouth once daily Active B Complex Vitamins (B COMPLEX PO) Take 1 tablet by mouth once daily Active budesonide (Rhinocort Aqua) 32 MCG/ACT nasal spray [place] 2 (two) sprays into each nostril once [...] 12+ yr 0.3mL Purple cap 09/08/2021,02/16/2021,01/26/2021 INFLUENZA [id number], HISTORIC VACCINE 09/11/2023 INFLUENZA VACCINE 08/23/2023 INFLUENZA [...] on file Legal Sex Female 5:23 PM SPRUE CUTTING PRESS OPERATOR Gender Identity Not on file Sexual Orientation Not on file Last Filed Vital Signs Vital Sign Reading Time Taken Comments Blood Pressure 145/80 01/28/2025 9:24 AM SPRUE CUTTING PRESS OPERATOR Pulse 79 01/28/2025 9:24 AM SPRUE CUTTING PRESS OPERATOR Temperature 36.7 C (98.1 F) 06/08/2021 2:51 PM CDT Respiratory Rate 14 08/23/2016 9:30 AM CDT Oxygen Saturation - - Inhaled Oxygen Concentration - - Weight 66.9 kg (147 lb 8 oz) 01/28/2025 9:24 AM SPRUE CUTTING PRESS OPERATOR Height 175.3 cm (5' 9) 01/28/2025 9:24 AM SPRUE CUTTING PRESS OPERATOR Body Mass Index 21.78 01/28/2025 9:24 AM SPRUE CUTTING PRESS OPERATOR Plan of Treatment Health Maintenance Due Date [...] patient's age to complete this topic Insurance [facility] MEDICARE UHC MANAGED MEDICARE ADV [facility] Care Teams Brick Molder Hand Relationship Specialty Start Date End Date Chris Wright MD PCP - General 04/09/19
--- OUTSIDE RECORDS SUMMARY | 2025-11-20 01:32 | XMS_ITS | Clinical Summary ---
Author Organization [facility] Address [address] [place] [address] Care Team Providers Care Web Content Coordinator Name Role Phone Chris Wright MD Primary Care Provider [phone] Allergies No known active allergies Medications ascorbic [...] STL ABSTRACTION Provider, Abstract 11/17/2025 10:20 AM PORTABLE TRACK CREW CHIEF Office Visit [facility] [address] [place] [address] Chris Wright MD Screening mammogram, encounter for (Primary Dx); Vitamin B12 deficiency (non anemic); Vitamin D deficiency; Other asthma; Elevated BP without diagnosis of hypertension; Myalgia 10/14/2025 External Device Data STL ABSTRACTION Provider, Abstract 10/08/[address] [place] [address] Chris Wright MD Mild intermittent asthma without complication 09/17/2025 External Device Data STL ABSTRACTION Provider, Abstract from Last 3 Months Immunizations Immunization Administration Dates Next Due (ADACEL/BOOSTRIX)(10 YR UP) TDAP VACCINE, 0.5ML, IM 11/29/2023 (AREXVY)(60 YR UP) RSV, JUAN MBINANT, PROTEIN SUBUNIT RSVPREF, ADJUVANT RECONSTITUTED, 0.5 ML, PF 11/29/2023 (PFIZER)(12 YR UP) COVID-19 VACCINE - EMERGENCY USE AUTHORIZATION, MRNA, [id number](PF) 30 MCG/0.3 ML IM SUSP 03/21/2022,09/06/2021,02/16/2021,01/26 (PNEUMOVAX [...] Comments Blood Pressure 124/66 11/17/2025 9:53 AM PORTABLE TRACK CREW CHIEF Pulse 65 11/17/2025 9:53 AM PORTABLE TRACK CREW CHIEF Temperature 36.4 C (97.6 F) 01/14/2025 10:42 AM PORTABLE TRACK CREW CHIEF Respiratory Rate 12 01/14/2025 10:42 AM PORTABLE TRACK CREW CHIEF Oxygen Saturation 98% 11/17/2025 9:53 AM PORTABLE TRACK CREW CHIEF Inhaled Oxygen Concentration - - Weight 68.5 kg (151 lb) 11/17/2025 9:53 AM PORTABLE TRACK CREW CHIEF Height 170.2 cm (5' 7) 11/17/2025 9:53 AM PORTABLE TRACK CREW CHIEF Body Mass Index 23.65 11/17/2025 9:53 AM PORTABLE TRACK CREW CHIEF Plan of Treatment Upcoming Encounters Date Type Department Care Team (Late st Contact Info) Description 08/05/2026 10:20 AM CDT Office Visit [facility] [address] [place] [address] Chris Wright MD [address] [place] [address] [address] [place] [address] Health Maintenance Due Date Last [...] (60+ or ) Completed 11/29/2023 [place] Preventative Visit/Annual Wellness Visit Completed 02/24/2025, 04/14/2023, 02/09/2022, Additional history exists INFLUENZA VACCINE Completed 08/27/2025, , 09/11/2023, Additional history exists Procedures Procedure Name Priority Date/Time Associated Diagnosis Comments VITAMIN D 25 HYDROXY Routine 11/12/2025 7:53 AM PORTABLE TRACK CREW CHIEF Vitamin D deficiency VITAMIN B12 LEVEL Routine 11/12/2025 7:5 3 AM PORTABLE TRACK CREW CHIEF Vitamin B12 deficiency (non anemic) TSH Routine 11/12/2025 7:53 AM PORTABLE TRACK CREW CHIEF Screening, lipid LIPID PANEL Routine 11/12/2025 7:53 AM PORTABLE TRACK CREW CHIEF Screening, lipid COMPREHENSIVE METABOLIC PANEL Routine 11/12/2025 7:53 AM PORTABLE TRACK CREW CHIEF Elevated BP without diagnosis of hypertension CBC WITH DIFFERENTIAL Routine 11/12/2025 7:53 AM PORTABLE TRACK CREW CHIEF Vitamin B12 deficiency (non anemic) MAMMO 3D BUBBA SCREEN BILAT W OR WO CAD Routine 11/14/2023 10:55 AM PORTABLE TRACK CREW CHIEF XR DEXA BONE DENSITY AXIAL 1 OR MORE SITES Routine 06/18/2022 from Last 3 Months or Most Recently Relevant to Health Maintenance Results * (ABNORMAL) CBC WITH DIFFERENTIAL (11/12/2025 7:53 AM PORTABLE TRACK CREW CHIEF) WBC 3.7(L) 3.8 - 10.8 Thousand/ uL [...] Pipe BASOPHILS 0.5 % [facility]ipe Comment: FASTING:YES FASTING: YES Test Performed at: [facility] [place] [address] [address] [place] [address] Zahra Blount Blood 11/12/2025 7:53 AM PORTABLE TRACK CREW CHIEF 11/12/2025 7:54 AM PORTABLE TRACK CREW CHIEF Chris Wright MD HEMATOLOGY ORDERABLES Final R esult [facility] [phone] [facility] [address] [address] [place] [address] * VITAMIN D 25 HYDROXY (11/12/2025 7:53 AM PORTABLE TRACK CREW CHIEF) VITAMIN D, 25 OH, TOTAL 61 30 - 100 ng/mL [facility] [place] Comment: Vitamin D Status 25-OH Vitamin D: Deficiency: <20 ng/mL Insufficiency: 20 - 29 ng/mL Optimal: > or = 30 ng/mL For 25-OH Vitamin D testing on patients on D2-supplementation and patients for whom quantitation of D2 and D3 fractions is required, the [facility](TM) 25-OH VIT D, (D2,D3), LC/MS/MS is recommended: order code 38978 (patients >2yrs). See Note 1 Note 1 For additional information, please refer to http://education.Chemo Beanies.goTaja.com/faq/FMB593 (This link is being provided for informational/ educational purposes only.) FASTING:YES FASTING: YES Test Performed at: [facility] [address] [address] Zahra Blount MD Blood 11/12/2025 7:53 AM PORTABLE TRACK CREW CHIEF 11/12/2025 7:54 AM PORTABLE TRACK CREW CHIEF Chris Wright MD CHEMISTRY ORDERABLES Final Re sult [facility] [phone] [facility] [address] [place] [address] * TSH (11/12/2025 7:53 AM PORTABLE TRACK CREW CHIEF) [facility] TSH 2.33 0.40 - 4.50 mIU/L [facility] Comment: FASTING:YES FASTING: YES Test Performed at: [place] [address] [place] [address] Zahra Blount Blood 11/12/2025 7:53 AM PORTABLE TRACK CREW CHIEF 11/12/2025 7:54 AM PORTABLE TRACK CREW CHIEF Chris Wright MD CHEMISTRY ORDERABLES Final Re sult Performing Organization Address City/[facility]/ZIP Code Phone Number [facility] [phone] [place] [address] [place] [address] * VITAMIN B12 LEVEL (11/12/2025 7:53 AM PORTABLE TRACK CREW CHIEF) [facility] VITAMIN B12 615 200 - 1100 pg/mL [facility] Comment: Test Performed at: [facility] [address] Zahra Blount MD Blood 11/12/2025 7:53 AM PORTABLE TRACK CREW CHIEF 11/12/2025 7:54 AM PORTABLE TRACK CREW CHIEF Chris Wright MD CHEMISTRY ORDERABLES Final Re sult [facility] [phone] [facility] [address] [place] [address] * LIPID PANEL (11/12/2025 7:53 AM PORTABLE TRACK CREW CHIEF) [facility] CHOLESTEROL 174 <200 mg/dL [facility] renny Betancur HDL 79 > OR = 50 mg/dL [facility] TRIGLYCERIDE 76 <150 mg/dL [facility] LDL CALCULATED 79 mg/dL (calc) [facility] Betanc[facility] Comment: Reference range: <100 Desirable range <100 mg/dL for primary prevention; <70 mg/dL for patients with CHD or diabetic patients with > or = 2 CHD risk factors. LDL-C is now calculated using the Marco calculation, which is a validated novel method providing better accuracy than the Friedewald equation in the estimation of LDL-C. Kofi GROSSMAN et al. ANDIE. 2013;310(19): 3980-3594 (http://education.Excelera/faq/OAS294) CHOL/HDL RATIO 2.2 <5.0 (calc) [employer] [employer]Monica Betancur NON-HDL CHOLESTEROL 95 <130 mg/dL (calc) [facility] Comment: For patients with diabetes plus 1 major ASCVD risk factor, treating to a non-HDL-C goal of <100 mg/dL (LDL-C of <70 mg/dL) is considered a therapeutic option. Test Performed at: [facility] [place] [address] [place] [address] Zahra Blount Blood 11/12/2025 7:53 AM PORTABLE TRACK CREW CHIEF 11/12/2025 7:54 AM PORTABLE TRACK CREW CHIEF us Chris Wright MD CHEMISTRY ORDERABLES Final Re sult [facility] [phone] [facility] [place] [address] [place] [address] * COMPREHENSIVE METABOLIC PANEL (11/12/2025 7:53 AM PORTABLE TRACK CREW CHIEF) GLUCOSE 88 65 - 99 mg/dL [facility] Comment: Fasting reference interval BUN 15 7 - 25 mg/dL [facility] CREATININE 0.62 0.50 - 1.05 mg/dL [facility] GFR 96 > OR = 60 mL/min/1. 73m2 [facility] BUN/CREAT RATIO SEE NOTE: (calc) [facility] Betancur Comment: Not Reported: BUN and Creatinine are within reference range. SODIUM 142 135 - 146 mmol/L [facility] POTASSIUM 4.3 3.5 - 5.3 mmol/L [facility] CHLORIDE 108 98 - 110 mmol/L [facility] P[facility] CO2 30 20 - 32 mmol/L [facility] CALCIUM 9.2 8.6 - 10.4 mg/dL [facility] TOTAL PROTEIN 6.3 6.1 - 8.1 g/dL [facility] ALBUMIN 4.4 3.6 - 5.1 g/dL [facility] GLOBULIN 1.9 1.9 - 3.7 g/dL (calc) [facility] ALBUMIN/GLOBULIN RATIO 2.3 1.0 - 2.5 (calc) [facility] BILIRUBIN TOTAL 0.6 0.2 - 1.2 mg/dL [facility] ALKALINE PHOSPHATASE 72 37 - 153 U/L [facility] AST 24 10 - 35 U/L [facility] ALT 11 6 - 29 U/L [facility]ipe Comment: FASTING:YES FASTING: YES Test Performed at: [place] [address] [address] [place] [place] [address] [facility] Blood 11/12/2025 7:53 AM PORTABLE TRACK CREW CHIEF 11/12/2025 7:54 AM PORTABLE TRACK CREW CHIEF Chris Wright MD CHEMISTRY ORDERABLES Final Re grant hospital [facility] [phone] [place] [address] [address] [place] [address] * MAMMO 3D BUBBA SCREEN BILAT W OR WO CAD (11/14/2023 10:55 AM PORTABLE TRACK CREW CHIEF) Anatomical Region Laterality Modality Breast Bilateral Mammography us Abstract Provider MAMMO ORDERABLES Edited Result - Final * (ABNORMAL) XR DEXA BONE DENSITY AXIAL 1 OR MORE SITES (06/18/2022) T-SCORE FEMUR [facility] T-SCORE FEMUR (LEFT) [facility] T-SCORE FEMUR (RIGHT) [facility] T-SCORE FEMUR NECK [facility] T-SCORE FEMORAL NECK (LEFT) -1.7(A) -1.0 - 1.[facility] T-SCORE FEMORAL NECK (RIGHT) [facility] T-SCORE HEEL [facility] T-SCORE HEEL (LEFT) [facility] T-SCORE HEEL (RIGHT) [facility] T-SCORE HIP [facility] IN [facility] T-SCORE HIP (LEFT) [facility] T-SCORE HIP (RIGHT) [facility] T-SCORE WRIST [facility] T-SCORE WRIST (LEFT) [facility] T-SCORE WRIST (RIGHT) [facility] T-SCORE SPINE -0.3 -1.0 - 1.0 [facility] Anatomical Region Laterality Modality Other us Abstract Provider DIAGNOSTIC IMAGING ORDERABLES Edited Result - Final from Last 3 Months or Most Recently Relevant to Health Maintenance Insurance Care Teams Web Content Coordinator Relationship Specialty Start Date End Date Chris Wright MD PCP - General Internal Medicine 10/23/18
[2025-11-20 01:41] VITALS: BP 132/72; O2SAT 98
[2025-11-20 01:42] VITALS: O2SAT 97
[2025-11-20 01:45] VITALS: O2SAT 94
[2025-11-20 02:00] VITALS: BP 135/78; PULSE 65; RESP 16; O2SAT 96
[2025-11-20 02:00] LABS: Hematocrit 37.7 % (37.0-47.0); Hemoglobin 12.2 g/dL (12.0-15.0); Immature Granulocyte Percent A 0.2 % (0-0.5); Lymphocytes Absolute Auto 2.03 K/mm3 (0.9-3.2); Mean Corpuscular HGB Conc 32.4 g/dl (32-36); Mean Corpuscular Hemoglobin 30.3 pg (26-34); Mean Corpuscular Volume 93.8 fl (80-100); Nucleated Red Blood Cells Absolute Auto 0.000 K/mm3 (0.0-0.012); Nucleated Red Blood Cells Perc 0.0 % (0.0-0.2); Platelet Count Result 213 k/mm3 (150-375); Red Blood Count 4.02 M/mm3 (4.2-5.4); White Blood Count 4.7 K/mm3 (4.5-10.0)
[2025-11-20 02:01] VITALS: O2SAT 98
[2025-11-20 02:12] LABS: INR 0.9; Prothrombin Time 12.2 Seconds (11.1-14.7)
[2025-11-20 02:13] LABS: Partial Thromboplastin Time 26.7 Seconds (22.3-36.8)
[2025-11-20 02:15] LABS: Alanine Aminotransferase 17 U/L (6-35); Albumin Level 4.1 g/dL (3.5-5.1); Alkaline Phosphatase 114 U/L (38-126); Anion Gap 6 mmol/L (4-12); Aspartate Amino Transferase 38 U/L (14-36); Bilirubin,Total 0.5 mg/dL (0.2-1.3); Blood Urea Nitrogen 16 mg/dL (7-17); Calcium 9.5 mg/dL (8.4-10.2); Carbon Dioxide 24 mmol/L (22-30); Chloride 108 mmol/L (98-107); Estimated CRCL calculation 77 ml/min; Estimated Glomerular Filt Rate > 60; Glucose 94 mg/dL (65-110); Potassium 4.4 mmol/L (3.4-5.0); Sodium 138 mmol/L (137-145); Total Protein 6.8 g/dL (6.3-8.2)
[2025-11-20 02:24] LABS: NT Pro B Type Natriuretic Pept 247 pg/mL (19.9-100)
--- NOTE | 2025-11-20 03:23 | ED_ITS ---
HPI - General Adult General Chief complaint: Extremity Injury, Lower Stated complaint: right leg swelling Time Seen by Provider: 11/20/25 01:15 History of Present Illness HPI narrative: patient is a 70-year-old female who presents emergency department chief complaint of right leg swelling patient states that she noticed her leg was little swollen the patient does report that she has had a prior hip replacement patient reports that there is no redness reports no trauma reports no chest pain no shortness of breath. Related Data Allergies Allergy/AdvReac Type Severity Reaction Status Date / Time No Known Allergies Allergy Unverified 01/18/22 15:30 Review of Systems 2 Review of Systems: A 10 system review of systems was completed on the patient and is negative except for what is stated in the HPI. Nursing and ancillary documentation was reviewed. [facility] Social History Social History Smoking status: Never smoker Alcohol intake: current Exam 2 Narrative: GENERAL: Well-appearing, well-nourished, and in no acute distress. HEAD: Normocephalic, atraumatic. EYES: PERRLA and EOMI. ENT: Nares clear, no rhinorrhea or epistaxis. Mucous membranes moist. NECK: Supple. CHEST: Clear to auscultation. No respiratory distress. HEART: Regular rate and rhythm. No murmur heard. Normal peripheral pulses. ABDOMEN: Soft, nontender, nondistended, normal active bowel sounds. EXTREMITIES: Normal range of motion. Plus one edema right lower extremity. no calf tenderness no redness SKIN: Warm, dry, no rash. NEURO: No focal deficits. Alert and oriented x3. PSYCH: Normal mood and affect. Course Vital Signs Vital signs: Vital Signs Temperature 36.4 C 11/19/25 21:16 Pulse Rate 66 11/19/25 21:16 Respiratory Rate 18 11/19/25 21:16 Blood Pressure 147/80 H 11/19/25 21:16 Pulse Oximetry 96 11/19/25 21:16 Oxygen Delivery Room Air 11/19/25 21:16 Temperature 36.4 C 11/19/25 21:16 Pulse Rate 65 11/20/25 02:00 Respiratory Rate 16 11/20/25 02:00 Blood Pressure 135/78 11/20/25 02:00 Pulse Oximetry 98 11/20/25 02:01 Oxygen Delivery Room Air 11/19/25 21:16 MDM Differential Diagnosis Differential Diagnosis: DVT, peripheral edema, CHF, patient had a slightly elevated BNP at 247 D-dimer was 0.62 the patient will be given 1.5 milligrams/kilogram Lovenox will allow for 24 hour dosing of Lovenox the patient be given a prescription for a venous duplex and the patient will be seen either or Monday for a venous duplex Lab Data 11/20/25 01:37 11/20/25 01:37 Labs: Lab Results 11/20/25 Range/Units 01:37 WBC 4.7 (4.5-10.0) K/mm3 RBC 4.02 L (4.2-5.4) M/mm3 Hgb 12.2 (12.0-15.0) g/dL Hct 37.7 (37.0-47.0) % MCV 93.8 (80-100) fl MCH 30.3 (26-34) pg MCHC 32.4 (32-36) g/dl RDW 14.2 (11.5-14.5) % Plt Count 213 (150-375) k/mm3 MPV 10.9 H (7.4-10.4) fl Immature Gran % (Auto) 0.2 (0-0.5) % Neut % (Auto) 41.8 L (45.5-73.1) % Lymph % (Auto) 43.6 (18.3-44.2) % Ballard % (Auto) 8.6 H (2.6-8.5) % Eos % (Auto) 4.7 H (0-4.4) % Baso % (Auto) 1.1 (0.2-1.2) % Lymph # (Auto) 2.03 (0.9-3.2) K/mm3 Ballard # (Auto) 0.4 (0.1-0.6) K/mm3 Eos # (Auto) 0.2 (0-0.3) K/mm3 Baso # (Auto) 0.1 (0.0-0.1) K/mm3 Abs Immat Gran (auto) 0.01 (0.00-0.031) K/mm3 Absolute Neuts (auto) 2.0 (1.3-6.7) K/mm3 Absolute Nucleated RBC 0.000 (0.0-0.012) K/mm3 Nucleated RBC % 0.0 (0.0-0.2) % PT 12.2 (11.1-14.7) Seconds INR 0.9 APTT 26.7 (22.3-36.8) Seconds D-Dimer 0.62 H (<0.48) ug/mL Sodium 138 (137-145) mmol/L Potassium 4.4 (3.4-5.0) mmol/L Chloride 108 H (98-107) mmol/L Carbon Dioxide 24 (22-30) mmol/L Anion Gap 6 (4-12) mmol/L BUN 16 (7-17) mg/dL Creatinine 0.61 L (0.7-1.0) mg/dL Estim Creat Clear Calc 77 ml/min Estimated GFR > 60 (59 - ) Glucose 94 (65-110) mg/dL Calcium 9.5 (8.4-10.2) mg/dL Total Bilirubin 0.5 (0.2-1.3) mg/dL AST 38 H (14-36) U/L ALT 17 (6-35) U/L Alkaline Phosphatase 114 (38-126) U/L NT-Pro-B Natriuret Pep 247 H (19.9-100) pg/mL Total Protein 6.8 (6.3-8.2) g/dL Albumin 4.1 (3.5-5.1) g/dL Discharge Plan Discharge Clinical Impression: Right leg swelling Patient Disposition: Home Condition: Stable Instructions: Antibiotic Form, Leg Edema (ED) Additional Instructions: your given a dose of a blood thinner that will cover for 24 hours radiology should be able to do your ultrasound either this morning at 7:00 a.m. or tomorrow at 7:00 a.m. Patient Language: Polish Follow-up/Referrals: Kyle,Chris Barnett MD [Primary Care Provider] Time of Disposition: 03:29
[2025-11-20] MEDS: ENOXAPARIN 100 MG/ML SYRINGE SUB-Q (04:11)
== END 2025-11-20 04:20 | disposition home or self-care (01) ==
PROVIDERS: Emergency Provider Emergency Medicine; PCP Internal Medicine
DX: R22.41 Localized swelling, mass and lump, right lower limb (principal)
CPT/HCPCS: 36415; 80053; 83880; 85025; 85380; 85610; 85730; 96372; 99283; J1650

== ENCOUNTER 2025-11-21 07:30 | Outpatient (CLI) | payer MEDICARE, SELFPAY ==
--- NOTE | ~2025-11-21 | US_ITS ---
RIGHT LOWER EXTREMITY VENOUS DUPLEX Clinical History: Pain, and swelling COMPARISON: None TECHNIQUE: Grayscale, color, duplex/spectral Doppler sonography right leg FINDINGS: Right leg common femoral, femoral, popliteal, and calf veins compressible and color Doppler patent. Normal augmentation with distal compression. No internal echoes. IMPRESSION: 1. No right leg DVT. Reviewed, dictated and finalized at location R. OMS EXAMINER IMPRESSION: 1. No right leg DVT.
--- OUTSIDE RECORDS SUMMARY | 2025-11-21 07:33 | XMS_ITS | Clinical Summary ---
Author Organization [facility] Address [address] [facility] [place] [address] Care Team Providers Care Special Agent Secret Service Name Role Phone Chris Wright MD Primary Care Provider [phone] Source Comments [facility],non-owned Affiliates and Associated Physician Practices is amultiple site organization consisting of ambulatory clinics and hospital sitesin [place], [place], [place] and [place]. This disclosure is being madepursuant to the Care Everywhere program and may not contain all information available regarding this patient. Last updated 18.[facility] Allergies No known active allergies Medications * Be aware that medications may not be up to date on this document. Alwaysverify current medications with the patient. vitamin D, ergocalciferol, (DRISDOL) 42615 UNITS capsule Take 1 (one) capsule by mouth every 7 days 3 09/10/2016 Active ADVAIR DISKUS 500-50 MCG/DOSE inhaler Inhale 1 (one) puff by mouth 2 times daily 02/26/2019 Active Ascorbic Acid 500 MG Take 500 mg by mouth once daily Active B Complex Vitamins (B COMPLEX PO) Take 1 tablet by mouth once daily Active budesonide (Rhinocort Aqua) 32 MCG/ACT nasal spray [place] 2 (two) sprays into each nostril once [...] 12+ yr 0.3mL Purple cap 09/08/2021,02/16/2021,01/26/2021 INFLUENZA [id number], HISTORIC VACCINE 09/11/2023 INFLUENZA VACCINE 08/23/2023 INFLUENZA [...] on file Legal Sex Female 5:23 PM STEAM CLOTHES PRESS OPERATOR Gender Identity Not on file Sexual Orientation Not on file Last Filed Vital Signs Vital Sign Reading Time Taken Comments Blood Pressure 145/80 01/28/2025 9:24 AM STEAM CLOTHES PRESS OPERATOR Pulse 79 01/28/2025 9:24 AM STEAM CLOTHES PRESS OPERATOR Temperature 36.7 C (98.1 F) 06/08/2021 2:51 PM CDT Respiratory Rate 14 08/23/2016 9:30 AM CDT Oxygen Saturation - - Inhaled Oxygen Concentration - - Weight 66.9 kg (147 lb 8 oz) 01/28/2025 9:24 AM STEAM CLOTHES PRESS OPERATOR Height 175.3 cm (5' 9) 01/28/2025 9:24 AM STEAM CLOTHES PRESS OPERATOR Body Mass Index 21.78 01/28/2025 9:24 AM STEAM CLOTHES PRESS OPERATOR Plan of Treatment Health Maintenance [...] patient's age to complete this topic Insurance [facility] MEDICARE UHC MANAGED MEDICARE ADV [facility] Care Teams Special Agent Secret Service Relationship Specialty Start Date End Date Chris Wright MD PCP - General 04/09/19
--- OUTSIDE RECORDS SUMMARY | 2025-11-21 07:33 | XMS_ITS | Encounter Summary ---
Author Organization [facility] Address [address] [place] [address] Care Team Providers Care Freezer Unloader Name Role Phone Chris Wright MD Primary Care Provider [phone] Reason for Visit * Reason Onset Date Comments appointment 04/10/2023 Encounter Details Date Type Department Care Team (Late st Contact Info) Description 04/10/2023 Telephone [facility] Primary Care [address] [place] [address] Chris Wright MD [address] [facility] [address] [place] [address] appointment Social History Tobacco Use [...] the patient needs. Please Advise. Call-back Number: [phone] (home) documented in this encounter Plan of Treatment Upcoming Encounters Date Type Department Care Team (Late st Contact Info) Description 08/05/2026 10:20 AM CDT Office Visit [facility] Primary Care [address] [phone] Chris Wright MD [address] [place], [place] [id number] documented as of this encounter Visit Diagnoses Not on filedocumented in this encounter Care Teams Freezer Unloader Relationship Specialty Start Date End Date Chris Wright MD PCP - General Internal Medicine 10/23/18 documented as of this encounter
--- OUTSIDE RECORDS SUMMARY | 2025-11-21 07:33 | XMS_ITS | Clinical Summary ---
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 Left: Hip [employer] 02/24/2033 [id number] / / [id number] [employer] [place] 6.5mm 35mm Acetabular Cancellous Screw Bone Sterile 1217-35-500 - [id number] Implanted:Qty: 1 on 05/26/2023 by Morgan Mohr MD at [facility] Left: Hip [employer] 12/27/2032 1217-35-500 / / [id number] [employer] Actis L107 Mm Collar Hip 6 High Offset Stem Femoral [id number] - [id number] Implanted:Qty: 1 on 05/26/2023 by Morgan Mohr MD at [facility] Left: Hip [employer] 12/27/2032 [id number] / / [id number] [employer] Articul/Seferino 36mm Cementless Hip +5mm 12/14 Taper Head Femoral Latex Free [id number] - [id number] Implanted:Qty: 1 on 05/26/2023 by Morgan Mohr MD at [facility] Left: Hip [employer] [id number] 03/26/2028 [id number] / / [id number] [employer] [place] 54mm 36mm Hip Neutral Liner Acetabular Altrx Sterile Latex Free [id number] - Sn/A - [id number] Implanted:Qty: 1 on 05/26/2023 by Morgan Mohr MD at [facility] Left: Hip [employer] [id number] 01/25/2028 [id number] / N/A / [id number] [employer] Articul/Seferino 36mm Cementless Hip +5mm 12/14 Taper Head Femoral Latex Free [id number] - [id number] Implanted:Qty: 1 on 09/06/2023 by Morgan Mohr MD at [facility] Right: Hip [employer] 07/27/2028 [id number] / / [id number] [employer] [place] 54mm Sector Hip Shell Acetabular Gription Sterile Latex Free [id number] - [id number] Implanted:Qty: 1 on 09/06/2023 by Morgan Mohr MD at [facility] Right: Hip [employer] 06/26/2033 [id number] / / [id number] [employer] [place] 54mm 36mm Hip Neutral Liner Acetabular Altrx Sterile Latex Free [id number] - [id number] Implanted:Qty: 1 on 09/06/2023 by Morgan Mohr MD at [facility] Right: Hip [employer] 06/26/2028 [id number] / / [id number] [employer] [place] 6.5mm 35mm Acetabular Cancellous Screw Bone Sterile 1217-35-500 - [id number] Implanted:Qty: 1 on 09/06/2023 by Morgan Mohr MD at [facility] Right: Hip [employer] 05/26/2033 1217-35-500 / / [id number] [employer] Actis Collar Hip 7 High Offset Stem Femoral [id number] - [id number] Implanted:Qty: 1 on 09/06/2023 by Morgan Mohr MD at [facility] Right: Hip [employer] 03/26/2033 [id number] / / [id number] Procedures Procedure Name Priority Date/Time Associated Diagnosis Comments DEXA AXIAL SKELETON BONE DENSITY 1 OR MORE SITES Schedule Routine, Read Routine (OP Routine) 11/18/2019 9:03 AM ROLLER SKATES ASSEMBLER Osteoporosis, unspecified osteoporosis type, unspecified pathological fracture presence from Last 3 Months or Most Recently Relevant to Health Maintenance Results * Dexa Axial Skeleton Bone Density 1 or 2 Site (11/18/2019 9:03 AM ROLLER SKATES ASSEMBLER) Anatomical Region Laterality Modality Body N/A Radiographic Pita ging Narrative 11/18/2019 12:09 PM ROLLER SKATES ASSEMBLER Patient Name: Deysi Antunez Date of : 1955 Date of scan: 11/18/2019 Bone mineral density was performed on a [employer] Discovery Densitometer. Machine Cross-calibration and Precision studies [...] by the International Society of Clinical Densitometry. [id number] Speedy Waite MD G DXA PROCEDURES Edited R esult - Final from Last 3 Months or Most Recently Relevant to Health Maintenance Insurance ANTH ACCESS MEDICARE ADVANTAGE [facility] MEDICARE ADVANTAGE [facility]ICARE Address: [facility] [address] [place] [address] Advance Directives For more information, please contact: [phone] * Full Code (Latest Code Status on File) Date Activated Date Inactivated Comments 09/06/2023 12:52 PM 09/07/2023 5:48 PM * Full Code Date Activated Date Inactivated Comments 05/26/2023 11:03 AM 05/26/2023 6:48 PM Care Teams Line Construction Engineer Relationship Specialty Start Date End Date Chris Wright MD PCP - General Internal Medicine 07/15/19 Morgan Mohr MD [address] [place] [address] [address] [place] [address] Surgeon Orthopedic Surgery 05/26/23 Charlotte Veliz PA [address] [place] [address] [place] [address] Orthopedic Surgery 06/28/23
--- OUTSIDE RECORDS SUMMARY | 2025-11-21 07:33 | XMS_ITS | Clinical Summary ---
Author Organization [facility] Address [address] [place] [address] Care Team Providers Care Gridcap Machine Operator Name Role Phone Chris Wright MD Primary Care Provider [phone] Allergies No known active allergies Medications ascorbic [...] STL ABSTRACTION Provider, Abstract 11/17/2025 10:20 AM LOADER OPERATOR/GROUND LEADER Office Visit [facility] [address] [place] [address] Chris Wright MD Screening mammogram, encounter for (Primary Dx); Vitamin B12 deficiency (non anemic); Vitamin D deficiency; Other asthma; Elevated BP without diagnosis of hypertension; Myalgia 10/14/2025 External Device Data STL ABSTRACTION Provider, Abstract 10/08/[address] [place] [address] Chris Wright MD Mild intermittent asthma without complication 09/17/2025 External Device Data STL ABSTRACTION Provider, Abstract from Last 3 Months Immunizations Immunization Administration Dates Next Due (ADACEL/BOOSTRIX)(10 YR UP) TDAP VACCINE, 0.5ML, IM 11/29/2023 (AREXVY)(60 YR UP) RSV, JUAN MBINANT, PROTEIN SUBUNIT RSVPREF, ADJUVANT RECONSTITUTED, 0.5 ML, PF 11/29/2023 (PFIZER)(12 YR UP) COVID-19 VACCINE - EMERGENCY USE AUTHORIZATION, MRNA, [id number](PF) 30 MCG/0.3 ML IM SUSP 03/21/2022,09/06/2021,02/16/2021,01/26 (PNEUMOVAX [...] Comments Blood Pressure 124/66 11/17/2025 9:53 AM LOADER OPERATOR/GROUND LEADER Pulse 65 11/17/2025 9:53 AM LOADER OPERATOR/GROUND LEADER Temperature 36.4 C (97.6 F) 01/14/2025 10:42 AM LOADER OPERATOR/GROUND LEADER Respiratory Rate 12 01/14/2025 10:42 AM LOADER OPERATOR/GROUND LEADER Oxygen Saturation 98% 11/17/2025 9:53 AM LOADER OPERATOR/GROUND LEADER Inhaled Oxygen Concentration - - Weight 68.5 kg (151 lb) 11/17/2025 9:53 AM LOADER OPERATOR/GROUND LEADER Height 170.2 cm (5' 7) 11/17/2025 9:53 AM LOADER OPERATOR/GROUND LEADER Body Mass Index 23.65 11/17/2025 9:53 AM LOADER OPERATOR/GROUND LEADER Plan of Treatment Upcoming Encounters Date Type Department Care Team (Late st Contact Info) Description 08/05/2026 10:20 AM CDT Office Visit [facility] [place] [facility] [address] [place] [address] Chris Wright MD [address] [place] [address] [address] [place] [address] Health Maintenance Due Date Last [...] RSV VACCINE (60+ or ) Completed 11/29/2023 INFLUENZA VACCINE Completed 08/27/2025, , 09/11/2023, Additional history exists Procedures Procedure Name Priority Date/Time Associated Diagnosis Comments VITAMIN D 25 HYDROXY Routine 11/12/2025 7:53 AM LOADER OPERATOR/GROUND LEADER Vitamin D deficiency VITAMIN B12 LEVEL Routine 11/12/2025 7:5 3 AM LOADER OPERATOR/GROUND LEADER Vitamin B12 deficiency (non anemic) TSH Routine 11/12/2025 7:53 AM LOADER OPERATOR/GROUND LEADER Screening, lipid LIPID PANEL Routine 11/12/2025 7:53 AM LOADER OPERATOR/GROUND LEADER Screening, lipid COMPREHENSIVE METABOLIC PANEL Routine 11/12/2025 7:53 AM LOADER OPERATOR/GROUND LEADER Elevated BP without diagnosis of hypertension CBC WITH DIFFERENTIAL Routine 11/12/2025 7:53 AM LOADER OPERATOR/GROUND LEADER Vitamin B12 deficiency (non anemic) MAMMO 3D BUBBA SCREEN BILAT W OR WO CAD Routine 11/14/2023 10:55 AM LOADER OPERATOR/GROUND LEADER XR DEXA BONE DENSITY AXIAL 1 OR MORE SITES Routine 06/18/2022 from Last 3 Months or Most Recently Relevant to Health Maintenance Results * (ABNORMAL) CBC WITH DIFFERENTIAL (11/12/2025 7:53 AM LOADER OPERATOR/GROUND LEADER) WBC 3.7(L) 3.8 - 10.8 Thousand/ uL [...] [facility] BASOPHILS 0.5 % [facility] Comment: FASTING:YES FASTING: YES Test Performed at: [facility] [place] [address] [place] [address] Zahra Blount Blood 11/12/2025 7:53 AM LOADER OPERATOR/GROUND LEADER 11/12/2025 7:54 AM LOADER OPERATOR/GROUND LEADER Chris Wright MD HEMATOLOGY ORDERABLES Final R esult Performing Organization Address City/[facility]/ZIP Code Phone Number [facility] [phone] [facility] [address] [place] [address] * VITAMIN D 25 HYDROXY (11/12/2025 7:53 AM LOADER OPERATOR/GROUND LEADER) VITAMIN D, 25 OH, TOTAL 61 30 - 100 ng/mL [facility] Comment: Vitamin D Status 25-OH Vitamin D: Deficiency: <20 ng/mL Insufficiency: 20 - 29 ng/mL Optimal: > or = 30 ng/mL For 25-OH Vitamin D testing on patients on D2-supplementation and patients for whom quantitation of D2 and D3 fractions is required, the Quest[facility]ure[facility](TM) 25-OH VIT D, (D2,D3), LC/MS/MS is recommended: order code 15349 (patients >2yrs). See Note 1 Note 1 For additional information, please refer to http://education.SoStupid.com/faq/OPI479 (This link is being provided for informational/ educational purposes only.) FASTING:YES FASTING: YES Test Performed at: [facility] [address] [place] [address] Zahra Blount MD Blood 11/12/2025 7:53 AM LOADER OPERATOR/GROUND LEADER 11/12/2025 7:54 AM LOADER OPERATOR/GROUND LEADER Chris Wright MD CHEMISTRY ORDERABLES Final Re sult Performing Organization Address City/State/ZIP Co va Phone Number [facility] [phone] [facility] [address] [facility] [place] [address] * TSH (11/12/2025 7:53 AM LOADER OPERATOR/GROUND LEADER) Pathologist [facility] TSH 2.33 0.40 - 4.50 mIU/L [facility] Comment: FASTING:YES FASTING: YES Test Performed at: [place] [address] [place] [address] Zahra Blount Blood 11/12/2025 7:53 AM LOADER OPERATOR/GROUND LEADER 11/12/2025 7:54 AM LOADER OPERATOR/GROUND LEADER Chris Wright MD CHEMISTRY ORDERABLES Final Re sult [facility] [phone] [place] [address] [place] [address] * VITAMIN B12 LEVEL (11/12/2025 7:53 AM LOADER OPERATOR/GROUND LEADER) [facility] VITAMIN B12 615 200 - 1100 pg/mL [facility] Comment: Test Performed at: [facility] [address] Zahra Blount MD Blood 11/12/2025 7:53 AM LOADER OPERATOR/GROUND LEADER 11/12/2025 7:54 AM LOADER OPERATOR/GROUND LEADER Chris Wright MD CHEMISTRY ORDERABLES Final Re sult [facility] [phone] [facility] [address] * LIPID PANEL (11/12/2025 7:53 AM LOADER OPERATOR/GROUND LEADER) Pathologist [facility] CHOLESTEROL 174 <200 mg/dL [facility] HDL 79 > OR = 50 mg/dL [facility] TRIGLYCERIDE 76 <150 mg/dL [facility] LDL CALCULATED 79 mg/dL (calc) [facility] Comment: Reference range: <100 Desirable range <100 mg/dL for primary prevention; <70 mg/dL for patients with CHD or diabetic patients with > or = 2 CHD risk factors. LDL-C is now calculated using the Marco calculation, which is a validated novel method providing better accuracy than the Friedewald equation in the estimation of LDL-C. Kofi SS et al. ANDIE. 2013;310(32): 8924-3548 (http://education.SoStupid.com/faq/FHF857) CHOL/HDL RATIO 2.2 <5.0 (calc) [facility] NON-HDL CHOLESTEROL 95 <130 mg/dL (calc) [facility] Comment: For patients with diabetes plus 1 major ASCVD risk factor, treating to a non-HDL-C goal of <100 mg/dL (LDL-C of <70 mg/dL) is considered a therapeutic option. Test Performed at: [facility] [address] [place] [address] Zahra Blount Blood 11/12/2025 7:53 AM LOADER OPERATOR/GROUND LEADER 11/12/2025 7:54 AM LOADER OPERATOR/GROUND LEADER us Chris Wright MD CHEMISTRY ORDERABLES Final Re sult [facility] [phone] [facility] [place] [address] [address] [place] [address] * COMPREHENSIVE METABOLIC PANEL (11/12/2025 7:53 AM LOADER OPERATOR/GROUND LEADER) GLUCOSE 88 65 - 99 mg/dL [facility] Comment: Fasting reference interval BUN 15 7 - 25 mg/dL [facility] CREATININE 0.62 0.50 - 1.05 mg/dL [facility] GFR 96 > OR = 60 mL/min/1. 73m2 [facility] BUN/CREAT RATIO SEE NOTE: 6 - 22 (calc) [facility] Comment: Not Reported: BUN and Creatinine are within reference range. SODIUM 142 135 - 146 mmol/L [facility] POTASSIUM 4.3 3.5 - 5.3 mmol/L [facility] CHLORIDE 108 98 - 110 mmol/L [facility] CO2 30 20 - 32 mmol/L [facility] CALCIUM 9.2 8.6 - 10.4 mg/dL [facility] TOTAL PROTEIN 6.3 6.1 - 8.1 g/dL [facility] ALBUMIN 4.4 3.6 - 5.1 g/dL [facility] GLOBULIN 1.9 1.9 - 3.7 g/dL (calc) [facility] ALBUMIN/GLOBULIN RATIO 2.3 1.0 - 2.5 (calc) [facility] BILIRUBIN TOTAL 0.6 0.2 - 1.2 mg/dL [facility] ALKALINE PHOSPHATASE 72 37 - 153 U/L [facility] AST 24 10 - 35 U/L [facility] ALT 11 6 - 29 U/L [facility] Comment: FASTING:YES FASTING: YES Test Performed at: [place] [address] [place] [address] Zahra Blount Blood 11/12/2025 7:53 AM LOADER OPERATOR/GROUND LEADER 11/12/2025 7:54 AM LOADER OPERATOR/GROUND LEADER Chris Wright MD CHEMISTRY ORDERABLES Final Re sult [facility] [phone] [place] [address] [place] [address] * MAMMO 3D BUBBA SCREEN BILAT W OR WO CAD (11/14/2023 10:55 AM LOADER OPERATOR/GROUND LEADER) Anatomical Region Laterality Modality Breast Bilateral Mammography Abstract Provider MAMMO ORDERABLES Edited Result - Final * (ABNORMAL) XR DEXA BONE DENSITY AXIAL 1 OR MORE SITES (06/18/2022) T-SCORE FEMUR [facility] INTERNAL [facility] T-SCORE FEMUR (LEFT) [facility] INTERNAL [facility] T-SCORE FEMUR (RIGHT) [facility] T-SCORE FEMUR NECK [facility] T-SCORE FEMORAL NECK (LEFT) -1.7(A) -1.0 - 1.0 [facility] INTERNAL [facility] T-SCORE FEMORAL NECK (RIGHT) [facility] T-SCORE HEEL [facility] I NTERNAL [facility] T-SCORE HEEL (LEFT) [facility] T-SCORE HEEL (RIGHT) [facility] [place]-SCORE HIP [facility] T-SCORE HIP (LEFT) [facility] T-SCORE HIP (RIGHT) [facility] INTER[facility] T-SCORE WRIST [facility] T-SCORE WRIST (LEFT) [facility] [place] [facility] T-SCORE WRIST (RIGHT) [facility] [place] [facility] T-SCORE SPINE -0.3 -1.0 - 1.0 [facility] INTERNAL [facility] Anatomical Region Laterality Modality Other us Abstract Provider DIAGNOSTIC IMAGING ORDERABLES Edited Result - Final from Last 3 Months or Most Recently Relevant to Health Maintenance Insurance Member Subscriber Plan / Payer (Ef fective 2024-Present) Name:Morris Deysimarielos Campuzano Relation to Subscriber:Self Name:Deysi Caceres Payer ID:[id number] (NAIC) Type:PPO Address: [place] [id number] Care Teams Gridcap Machine Operator Relationship Specialty Start Date End Date Chris Wright MD PCP - General Internal Medicine 10/23/18
== END 2025-11-21 07:31 | disposition home or self-care (01) ==
PROVIDERS: PCP Internal Medicine; Visit Provider Emergency Medicine
DX: I82.401 Acute embolism and thrombosis of unspecified deep veins of right lower extremity (principal)
CPT/HCPCS: 93971